=== PATIENT | male | born 1935 | race Caucasian/White ===

== ENCOUNTER 2017-10-09 10:12 | Emergency (ER) | payer MEDICARE ==
[~2017-10-09] VITALS: Ht 175.3 cm; Wt 70.5 kg
[~2017-10-09 10:12] MED LIST: ACET325 PO; MIRA33502 PO; PROT40TA PO
[2017-10-09 10:18] VITALS: BP 177/96; PULSE 79; RESP 24; TEMP 98.1; O2SAT 98
[2017-10-09 10:23] VITALS: BP 177/96; PULSE 78; RESP 20; TEMP 98.1; O2SAT 100
[2017-10-09] MEDS ORDERED: SODIUM CHLOR 0.9% 1000 ML INJ 1,000 ML IV SCH (10:29)
--- NOTE | 2017-10-09 10:29 | PD ---
HPI Chief Complaint: GI Complaint Time Seen by Provider: 10:23 Travel History International Travel<30 days: No Contact w/Intl Traveler<30days: No Traveled to known affect area: No History of Present Illness HPI PATIENT STATES HAS HISTORY OF STOMACH ULCER, AND OVER PAST 3 DAYS NAUSEA AND OCCASIONAL VOMITING WHICH IMPROVES HIS NAUSEA. PATIENT DENIES CP/BACK PAIN/ FEVER/COUGH/RUNNY NOSE PCP:DR UVALDO MARQUEZ Past Medical History Arthritis: No Asthma: No Heart Rhythm Problems: No Cardiovascular Problems: No High Cholesterol: No Chest Pain: No Congestive Heart Failure: No COPD: No Cerebrovascular Accident: No GERD: No Genitourinary: No Hiatal Hernia: No Kidney Stones: No Musculoskeletal: Yes (aches and pains generalized) Neurologic: No Reproductive: No Respiratory: No Migraines: No Renal Failure: No Seizures: No Sleep Apnea: No Ulcer: No Past Surgical History Abdominal Surgery: No Cardiac Surgery: No Ear Surgery: No Endocrine Surgery: No Eye Surgery: No Genitourinary Surgery: No Gynecologic Surgery: No Oral Surgery: No Pacemaker: No Thoracic Surgery: No Social History Alcohol Use: No Tobacco Use: No Substance Use: No Allergies-Medications (Allergen,Severity, Reaction): Coded Allergies: No Known Allergies (Verified Adverse Reaction, Unknown, 10/09/17) Reported Meds & Prescriptions Reported Meds & Active Scripts Active Reported Hydroxyzine HCl 25 Mg Tab 25 Mg PO DIRECTED PRN Pepto-Bismol Liq (Bismuth Subsalicylate) 262 Mg/15 Ml Susp 5 Ml PO DIRECTED PRN Do not exceed 8 doses (240 mL or 16 tbsp) in 24 hours. Doxazosin (Doxazosin Mesylate) 1 Mg Tab Unknown Dose PO BID Docusate Sodium 100 Mg Cap 50 Mg PO BID PRN Miralax Powder (Polyethylene Glycol 3350 Powder) 17 Gm Powd 17 Gm PO DAILY PRN Mix and dissolve one measuring cap-ful (17 grams) in water or juice. Senna-Tabs (Sennosides) 8.6 Mg Tab 8.6 Mg PO DAILY Aspirin 81 Mg Chew 81 Mg CHEW DAILY Protonix (Pantoprazole Sodium) 20 Mg Tab 20 Mg PO DAILY Review of Systems Except as stated in HPI: all other systems reviewed are Neg General / Constitutional: No: Fever Eyes: No: Visual changes HENT: No: Headaches Cardiovascular: No: Chest Pain or Discomfort Respiratory: No: Shortness of Breath Gastrointestinal: Positive: Nausea, Vomiting, Abdominal Pain Genitourinary: No: Dysuria Musculoskeletal: No: Pain Skin: No Rash Neurologic: No: Weakness Psychiatric: No: Depression Endocrine: No: Polydipsia Hematologic/Lymphatic: No: Easy Bruising Physical Exam Narrative GENERAL: SKIN: Warm and dry. HEAD: Atraumatic. Normocephalic. EYES: Pupils equal and round. No scleral icterus. No injection or drainage. ENT: No nasal bleeding or discharge. Mucous membranes pink and moist. NECK: Trachea midline. No JVD. CARDIOVASCULAR: Regular rate and rhythm. RESPIRATORY: No accessory muscle use. Clear to auscultation. Breath sounds equal bilaterally. GASTROINTESTINAL: Abdomen soft, MILD EPIG TTPERCUSSION, nondistended. MUSCULOSKELETAL: Extremities without clubbing, cyanosis, or edema. No obvious deformities. NEUROLOGICAL: Awake and alert. No obvious cranial nerve deficits. Motor grossly within normal limits. Five out of 5 muscle strength in the arms and legs. Normal speech. PSYCHIATRIC: Appropriate mood and affect; insight and judgment normal. Data Data Last Documented VS Vital Signs Date Time Temp Pulse Resp B/P (MAP) Pulse Ox O2 Delivery O2 Flow Rate FiO2 10/09/17 10:36 100 Room Air 10/09/17 10:23 98.1 78 20 Orders Orders Complete Blood Count With Diff (10/09/17 10:29) Comprehensive Metabolic Panel (10/09/17 10:29) Lipase (10/09/17 10:29) Prothrombin Time / Inr (Pt) (10/09/17 10:29) Act Partial Throm Time (Ptt) (10/09/17 10:29) Ct Abd/Pel W/O Iv Contrast (10/09/17 10:29) Iv Access Insert/Monitor (10/09/17 10:29) Ecg Monitoring (10/09/17 10:29) Oximetry (10/09/17 10:29) NPO (10/09/17 10:29) Ondansetron Inj (Zofran Inj) (10/09/17 10:30) Pantoprazole Inj (Protonix Inj) (10/09/17 10:30) Sodium Chlor 0.9% 1000 Ml Inj (Ns 1000 M (10/09/17 10:29) Sodium Chloride 0.9% Flush (Ns Flush) (10/09/17 10:30) Electrocardiogram (10/09/17 10:29) Al-Mag Hy-Si 40-40-4 Mg/Ml Liq (Mag-Al P (10/09/17 10:30) Lidocaine 2% Viscous (Xylocaine 2% Visco (10/09/17 10:30) Troponin I (10/09/17 10:29) Labs Laboratory Tests Test 10/09/17 10:35 White Blood Count 5.6 TH/MM3 Red Blood Count 4.57 MIL/MM3 Hemoglobin 14.7 GM/DL Hematocrit 41.5 % Mean Corpuscular Volume 90.7 FL Mean Corpuscular Hemoglobin 32.1 PG Mean Corpuscular Hemoglobin Concent 35.4 % Red Cell Distribution Width 14.2 % Platelet Count 269 TH/MM3 Mean Platelet Volume 8.6 FL Neutrophils (%) (Auto) 76.3 % Lymphocytes (%) (Auto) 18.5 % Monocytes (%) (Auto) 4.6 % Eosinophils (%) (Auto) 0.3 % Basophils (%) (Auto) 0.3 % Neutrophils # (Auto) 4.2 TH/MM3 Lymphocytes # (Auto) 1.0 TH/MM3 Monocytes # (Auto) 0.3 TH/MM3 Eosinophils # (Auto) 0.0 TH/MM3 Basophils # (Auto) 0.0 TH/MM3 CBC Comment DIFF FINAL Differential Comment Prothrombin Time 11.1 SEC Prothromb Time International Ratio 1.1 RATIO Activated Partial Thromboplast Time 25.8 SEC Blood Urea Nitrogen 12 MG/DL Creatinine 0.94 MG/DL Random Glucose 131 MG/DL Total Protein 7.6 GM/DL Albumin 4.0 GM/DL Calcium Level 9.1 MG/DL Alkaline Phosphatase 63 U/L Aspartate Amino Transf (AST/SGOT) 18 U/L Alanine Aminotransferase (ALT/SGPT) 15 U/L Total Bilirubin 0.7 MG/DL Sodium Level 134 MEQ/L Potassium Level 3.7 MEQ/L Chloride Level 100 MEQ/L Carbon Dioxide Level 25.6 MEQ/L Anion Gap 8 MEQ/L Estimat Glomerular Filtration Rate 76 ML/MIN Troponin I LESS THAN 0.02 NG/ML Lipase 72 U/L MDM Medical Decision Making Medical Screen Exam Complete: Yes Emergency Medical Condition: Yes Medical Record Reviewed: Yes Interpretation(s) EKG: HEAVY MOTION ARTIFACT, APPEARS TO BE SINUS IN PATTERN HOWEVER DIFFICULT TO ASSESS DUE TO PATIENT'S BASELINE TREMOR AT REST....RHYTHM STRIP REVEALS NSR AT 98 Differential Diagnosis DYSPEPSIA V PANCREATITIS V NV V NONSTEMI Narrative Course NORMAL LIVER/PANCREAS/KIDNEY FUNCTION TODAY, CT NEG FOR FREE AIR/SBO PATTERN AND ONLY NOTED CHRONIC CHANGES SUCH DIVERTICULOSIS AND CHRONIC LUMBAR FINDING Diagnosis Primary Impression: Dyspepsia Patient Instructions: Diet for Stomach Ulcers and Gastritis (ED), Gastritis (ED ), General Instructions Scripts Ondansetron Odt (Zofran Odt) 4 Mg Tab 4 MG SL Q6HR Y for Nausea/Vomiting, #12 TAB 0 Refills Prov: Elliot Humphrey MD 10/09/17 Disposition: 01 DISCHARGE HOME Condition: Stable Elliot Humphrey MD Oct 09, 2017 10:29
[2017-10-09] MEDS ORDERED: SODIUM CHLORIDE 0.9% FLUSH 10 ML FLUSH IV FLUSH PRN (10:30)
[2017-10-09] MEDS ORDERED: ALUMINUM/MAGNESIUM/SIMETH 30 ML CUP PO ONE (10:30)
[2017-10-09] MEDS ORDERED: LIDOCAINE VISCOUS 2% SOLN 15 ML UDC PO ONE (10:30)
[2017-10-09] MEDS ORDERED: ONDANSETRON HCL 4 MG/2 ML VIAL IVP ONE ×2 (10:30→13:00)
[2017-10-09] MEDS ORDERED: PANTOPRAZOLE SODIUM 40 MG VIAL IVP ONE (10:30)
[2017-10-09] MEDS ORDERED: SENN8.6T36 PO (10:32)
[2017-10-09] MEDS ORDERED: PANT20 PO (10:32)
[2017-10-09] MEDS ORDERED: DOCU100C15 PO (10:32)
[2017-10-09] MEDS ORDERED: ASPI-516 CHEW (10:32)
[2017-10-09] MEDS ORDERED: MIRA3350 PO (10:32)
[2017-10-09] MEDS ORDERED: DOXA1TAB36 PO (10:32)
[2017-10-09] MEDS ORDERED: HYDR-3133 PO (10:35)
[2017-10-09] MEDS ORDERED: PEPT262S PO (10:35)
[2017-10-09 10:36] VITALS: O2SAT 100
[2017-10-09 10:57] LABS: AUTOMATED NEUTROPHIL # 4.2 TH/MM3 (1.8-7.7); BASOPHIL % 0.3 % (0.0-2.0); EOSINOPHIL % 0.3 % (0.0-4.0); HEMATOCRIT 41.5 % (39.0-51.0); HEMOGLOBIN 14.7 GM/DL (13.0-17.0); LYMPH % 18.5 % (9.0-44.0); MEAN CELL VOLUME 90.7 FL (80.0-100.0); MEAN CORPUSCULAR HEMOGLOBIN 32.1 PG (27.0-34.0); MEAN CORPUSCULAR HGB CONC 35.4 % (32.0-36.0); MEAN PLATELET VOLUME 8.6 FL (7.0-11.0); MONO % 4.6 % (0.0-8.0); MONOCYTE # 0.3 TH/MM3 (0-0.9); NEUT % 76.3 % (16.0-70.0); PLATELET COUNT 269 TH/MM3 (150-450); RED BLOOD COUNT 4.57 MIL/MM3 (4.50-5.90); RED CELL DISTRIBUTION WIDTH 14.2 % (11.6-17.2); WHITE BLOOD COUNT 5.6 TH/MM3 (4.0-11.0)
[2017-10-09 11:06] LABS: INTERNATIONAL NORMALIZED RATIO 1.1 RATIO; PROTHROMBIN TIME - PATIENT 11.1 SEC (9.8-11.6)
[2017-10-09 11:12] LABS: AST (GOT) 18 U/L (15-37); BICARBONATE 25.6 MEQ/L (21.0-32.0); BLOOD UREA NITROGEN 12 MG/DL (7-18); CALCIUM 9.1 MG/DL (8.5-10.1); CHLORIDE 100 MEQ/L (98-107); CREATININE 0.94 MG/DL (0.60-1.30); GLOMERULAR FILTRATION RATE 76 ML/MIN (>89); GLUCOSE,RANDOM 131 MG/DL (74-106); LIPASE 72 U/L (73-393); SODIUM (NA) 134 MEQ/L (136-145)
[2017-10-09 11:13] LABS: ALT (GPT) 15 U/L (12-78)
[2017-10-09 11:17] LABS: ALKALINE PHOSPHATASE 63 U/L (45-117); TOTAL BILIRUBIN ADULT 0.7 MG/DL (0.2-1.0); TOTAL PROTEIN 7.6 GM/DL (6.4-8.2); TROPONIN I LESS THAN 0.02 NG/ML (0.02-0.05)
--- NOTE | 2017-10-09 11:38 | RADRPT ---
EXAM DATE/TIME: 10/09/2017 11:12 [facility] COMPARISON: No previous studies available for comparison. INDICATIONS : Patient complains of nausea, history of ulcer. ORAL CONTRAST: No oral contrast ingested. RADIATION DOSE: 6.59 CTDIvol (mGy) MEDICAL HISTORY : Hypertension. Ulcers. SURGICAL HISTORY : polyps removed ENCOUNTER: Initial ACUITY: 1 day PAIN SCALE: 0/10 LOCATION: abdomen TECHNIQUE: Volumetric scanning of the abdomen and pelvis was performed. Using automated exposure control and ad justment of the mA and/or kV according to patient size, radiation dose was kept as low as reasonably achievable to obtain optimal diagnostic quality images. DICOM format image data is available electro nically for review and comparison. FINDINGS: LOWER LUNGS: There is mild suspected atelectasis at the posterior lung bases. LIVER: Homogeneous density without lesion. There is no dilation of the biliary tree. No calcified gallston es. SPLEEN: Normal size without lesion. PANCREAS: Within normal limits. KIDNEYS: Normal in size and shape. There is no mass, stone, or hydronephrosis. ADRENAL GLANDS: Within normal limits. VASCULAR: There is no aortic aneurysm. Atherosclerotic calcifications are seen. BOWEL/MESENTERY: There are colonic diverticula present. Significant inflammatory change is not seen. ABDOMINAL WALL: Within normal limits. RETROPERITONEUM: There is no lymphadenopathy. BLADDER: No wall thickening or mass. REPRODUCTIVE: Prostate calcifications are present. INGUINAL: There is no lymphadenopathy or hernia. MUSCULOSKELETAL: There is a mild concave deformity of the superior aspect of L1. The age of this deformity is not know n. There is degenerative change in the lumbar spine and at the left hip. CONCLUSION: 1. Colonic diverticula. 2. Mild concave deformity of the superior aspect of L1. The age of this deformity is not known. 3. Degenerative change in lumbar spine and left hip. Lit Darling MD on October 09, 2017 at 11:31 Board Certified Radiologist. This report was verified electronically.
[2017-10-09 12:00] VITALS: BP 189/88; PULSE 56; RESP 10; O2SAT 99
[2017-10-09] MEDS ORDERED: ZOFR4TAB3 SL (12:20)
[2017-10-09] MEDS ORDERED: traMADol HCL 50 MG TAB PO ONE (13:00)
--- NOTE | 2017-10-10 17:19 | EKG ---
Date Performed: 10/09/2017 Time Performed: 10:48:56 PTAGE: 82 years EKG: ATRIAL FIBRILLATION ABNORMAL RHYTHM ECG INTERPRETATION BASED ON A DEFAULT AGE OF 40 YEARS PREVIOUS TRACING : 05/30/2013 17.34 Compared to prior tracing no significant change DOCTOR: Eron Ryan Interpretating Date/Time 10/10/2017 17:18:57
== END 2017-10-09 15:15 | disposition home or self-care (01) ==
LOC: NEPE 10:12
DX: R10.13 Epigastric pain (principal); R11.2 Nausea with vomiting, unspecified; I48.91 Unspecified atrial fibrillation; R94.31 Abnormal electrocardiogram [ECG] [EKG]; Z79.899 Other long term (current) drug therapy; Z79.82 Long term (current) use of aspirin
CPT/HCPCS: 74176; 80053; 83690; 84484; 85025; 85610; 85730; 93005; 96361; 96374; 96375; 96376; 99285; C9113; J2405; J7030

== ENCOUNTER → 2017-10-30 | Outpatient (CLI) | payer MEDICARE ==
[~2017-10-30] MED LIST changes: -ACET325 PO; +ASPI-516 CHEW; +DOCU100C15 PO; +DOXA1TAB36 PO; +HYDR-3133 PO; +MIRA3350 PO; -MIRA33502 PO; +PANT20 PO; +PEPT262S PO; -PROT40TA PO; +SENN8.6T36 PO; +ZOFR4TAB3 SL
[2017-10-30 13:29] LABS: BILIRUBIN, URINE NEG (NEG); BLOOD, URINE NEG (NEG); GLUCOSE,URINE NEG (NEG); HYALINE CAST, URINE 2 /lpf (RARE); KETONE, URINE NEG (NEG); MUCUS URINE MANY /lpf (OCC); NITRITE,URINE NEG (NEG); PH, URINE 5.5 (5.0-8.5); SQUAMOUS EPITHELIAL CELL URINE 2 /hpf (0-5); URINE COLOR YELLOW (YELLW/STRAW); URINE LEUKOCYTE ESTERASE NEG (NEG)
[2017-10-30 13:32] LABS: BASOPHIL % 0.3 % (0.0-2.0); EOSINOPHIL % 0.5 % (0.0-4.0); HEMATOCRIT 40.3 % (39.0-51.0); HEMOGLOBIN 13.9 GM/DL (13.0-17.0); LYMPH % 30.7 % (9.0-44.0); LYMPHOCYTE # 1.5 TH/MM3 (1.0-4.8); MEAN CELL VOLUME 91.1 FL (80.0-100.0); MEAN CORPUSCULAR HEMOGLOBIN 31.3 PG (27.0-34.0); MEAN CORPUSCULAR HGB CONC 34.4 % (32.0-36.0); MEAN PLATELET VOLUME 8.1 FL (7.0-11.0); MONO % 6.8 % (0.0-8.0); MONOCYTE # 0.3 TH/MM3 (0-0.9); NEUT % 61.7 % (16.0-70.0); PLATELET COUNT 292 TH/MM3 (150-450); RED BLOOD COUNT 4.43 MIL/MM3 (4.50-5.90); RED CELL DISTRIBUTION WIDTH 14.4 % (11.6-17.2); WHITE BLOOD COUNT 4.9 TH/MM3 (4.0-11.0)
[2017-10-30 14:01] LABS: ALBUMIN 3.9 GM/DL (3.4-5.0); AST (GOT) 12 U/L (15-37); BLOOD UREA NITROGEN 14 MG/DL (7-18); CALCIUM 9.8 MG/DL (8.5-10.1); CHLORIDE 99 MEQ/L (98-107); CREATININE 0.93 MG/DL (0.60-1.30); GLOMERULAR FILTRATION RATE 77 ML/MIN (>89); GLUCOSE,FASTING 124 MG/DL (74-99); SODIUM (NA) 135 MEQ/L (136-145)
[2017-10-30 14:02] LABS: ALT (GPT) 20 U/L (12-78)
[2017-10-30 14:12] LABS: ALKALINE PHOSPHATASE 58 U/L (45-117); THYROXINE (T4) 10.7 MCG/DL (4.5-12.1); TOTAL BILIRUBIN ADULT 0.6 MG/DL (0.2-1.0); TOTAL PROTEIN 7.3 GM/DL (6.4-8.2)
== END ==
LOC: PLAB 11:43
PROVIDERS: ATTEND Family Medicine
DX: I10 Essential (primary) hypertension (principal); N40.0 Benign prostatic hyperplasia without lower urinary tract symptoms; R94.6 Abnormal results of thyroid function studies; R11.2 Nausea with vomiting, unspecified
CPT/HCPCS: 36415; 80053; 81001; 84153; 84436; 84443; 85025

== ENCOUNTER 2018-02-03 15:15 | Emergency (ER) | payer MEDICARE, MEDICAID ==
[~2018-02-03 15:15] MED LIST changes: -ASPI-516 CHEW; +ASPI-516 PO
[2018-02-03 15:21] VITALS: BP 178/81; PULSE 81; RESP 19; TEMP 99.5; O2SAT 98
[2018-02-03] MEDS ORDERED: SODIUM CHLOR 0.9% 1000 ML INJ 1,000 ML IV SCH (15:41)
--- NOTE | 2018-02-03 15:41 | PD ---
HPI Chief Complaint: Abdominal Pain Time Seen by Provider: 15:31 Travel History International Travel<30 days: No Contact w/Intl Traveler<30days: No Traveled to known affect area: No History of Present Illness HPI 83-year-old male arrives to the ER by private vehicle. He has few complaints. He reports abdominal pain is somewhat chronic in nature. It is located in the lower pelvis distribution. He reports to codeines or use the day prior and were helpful. Typically he takes just one for the chronic pain. Subsequent constipation resolved with [id number] laxatives. He believes it might be related to gastric ulcer. Patient also describes chest tightness. He has had no fever. He denies vomiting. PFSH Past Medical History Arthritis: No Asthma: No Heart Rhythm Problems: No Cardiovascular Problems: Yes High Cholesterol: No Chest Pain: No Congestive Heart Failure: No COPD: No Cerebrovascular Accident: No Diminished Hearing: No Gastrointestinal Disorders: Yes GERD: No Genitourinary: No Hiatal Hernia: No Hypertension: Yes Kidney Stones: No Musculoskeletal: Yes Neurologic: No Reproductive: No Respiratory: No Migraines: No Renal Failure: No Seizures: No Sleep Apnea: No Ulcer: Yes (?) Past Surgical History Abdominal Surgery: No Cardiac Surgery: No Ear Surgery: No Endocrine Surgery: No Eye Surgery: No Genitourinary Surgery: No Gynecologic Surgery: No Oral Surgery: No Pacemaker: No Thoracic Surgery: No Social History Alcohol Use: No Tobacco Use: No Substance Use: No Allergies-Medications (Allergen,Severity, Reaction): Coded Allergies: No Known Allergies (Verified Adverse Reaction, Unknown, 02/03/18) Reported Meds & Prescriptions Reported Meds & Active Scripts Active Reported Zantac (Ranitidine HCl) 150 Mg Tab 150 Mg PO BID Tylenol-Codeine #3 (Acetaminophen-Codeine) 300-30 mg Tab 1 Tab PO Q6H PRN Doxazosin (Doxazosin Mesylate) 4 Mg Tab 4 Mg PO HS Pepto-Bismol Liq (Bismuth Subsalicylate) 262 Mg/15 Ml Susp 5 Ml PO DIRECTED PRN Do not exceed 8 doses (240 mL or 16 tbsp) in 24 hours. Docusate Sodium 100 Mg Cap 100 Mg PO BID PRN Senna-Tabs (Sennosides) 8.6 Mg Tab 8.6 Mg PO DAILY Aspirin 81 Mg Chew 81 Mg PO DAILY Protonix (Pantoprazole Sodium) 20 Mg Tab 20 Mg PO DAILY Review of Systems Except as stated in HPI: all other systems reviewed are Neg General / Constitutional: No: Fever Physical Exam Narrative GENERAL: 83-year-old male pleasant well-nourished well-developed no acute distress Vital Signs Date Time Temp Pulse Resp B/P (MAP) Pulse Ox O2 Delivery O2 Flow Rate FiO2 02/03/18 15:21 99.5 81 19 178/81 (113) 98 SKIN: Warm and dry. HEAD: Atraumatic. Normocephalic. EYES: Pupils equal and round. No scleral icterus. No injection or drainage. ENT: No nasal bleeding or discharge. Mucous membranes pink and moist. NECK: Trachea midline. No JVD. CARDIOVASCULAR: Regular rate and rhythm. RESPIRATORY: No accessory muscle use. Clear to auscultation. Breath sounds equal bilaterally. GASTROINTESTINAL: Soft. Nonspecific mild tenderness in lower abdomen. MUSCULOSKELETAL: Extremities without clubbing, cyanosis, or edema. No obvious deformities. NEUROLOGICAL: Awake and alert. No obvious cranial nerve deficits. Motor grossly within normal limits. Five out of 5 muscle strength in the arms and legs. Normal speech. PSYCHIATRIC: Appropriate mood and affect; insight and judgment normal. Data Data Last Documented VS Vital Signs Date Time Temp Pulse Resp B/P (MAP) Pulse Ox O2 Delivery O2 Flow Rate FiO2 02/03/18 15:21 99.5 81 19 178/81 (113) 98 Orders Orders Complete Blood Count With Diff (02/03/18 15:41) Comprehensive Metabolic Panel (02/03/18 15:41) Lipase (02/03/18 15:41) Lactic Acid (02/03/18 15:41) Urinalysis - C+S If Indicated (02/03/18 15:41) Ct Abd/Pel W Iv Contrast(Rout) (02/03/18 15:41) Iv Access Insert/Monitor (02/03/18 15:41) Ecg Monitoring (02/03/18 15:41) Oximetry (02/03/18 15:41) Sodium Chlor 0.9% 1000 Ml Inj (Ns 1000 M (02/03/18 15:41) Sodium Chloride 0.9% Flush (Ns Flush) (02/03/18 15:45) Electrocardiogram (02/03/18 15:41) Chest, Single Ap (02/03/18 15:41) Al-Mag Hy-Si 40-40-4 Mg/Ml Liq (Mag-Al P (02/03/18 15:45) Lidocaine 2% Viscous (Xylocaine 2% Visco (02/03/18 15:45) Troponin I (02/03/18 15:41) Iohexol 350 Inj (Omnipaque 350 Inj) (02/03/18 17:00) Labs Laboratory Tests Test 02/03/18 16:05 02/03/18 17:44 White Blood Count 7.3 TH/MM3 Red Blood Count 4.51 MIL/MM3 Hemoglobin 13.9 GM/DL Hematocrit 40.4 % Mean Corpuscular Volume 89.6 FL Mean Corpuscular Hemoglobin 30.9 PG Mean Corpuscular Hemoglobin Concent 34.5 % Red Cell Distribution Width 13.9 % Platelet Count 297 TH/MM3 Mean Platelet Volume 8.0 FL Neutrophils (%) (Auto) 70.4 % Lymphocytes (%) (Auto) 19.2 % Monocytes (%) (Auto) 8.5 % Eosinophils (%) (Auto) 1.5 % Basophils (%) (Auto) 0.4 % Neutrophils # (Auto) 5.1 TH/MM3 Lymphocytes # (Auto) 1.4 TH/MM3 Monocytes # (Auto) 0.6 TH/MM3 Eosinophils # (Auto) 0.1 TH/MM3 Basophils # (Auto) 0.0 TH/MM3 CBC Comment DIFF FINAL Differential Comment Blood Urea Nitrogen 22 MG/DL Creatinine 1.02 MG/DL Random Glucose 94 MG/DL Total Protein 7.3 GM/DL Albumin 3.7 GM/DL Calcium Level 8.9 MG/DL Alkaline Phosphatase 57 U/L Aspartate Amino Transf (AST/SGOT) 13 U/L Alanine Aminotransferase (ALT/SGPT) 17 U/L Total Bilirubin 0.8 MG/DL Sodium Level 138 MEQ/L Potassium Level 4.0 MEQ/L Chloride Level 103 MEQ/L Carbon Dioxide Level 24.3 MEQ/L Anion Gap 11 MEQ/L Estimat Glomerular Filtration Rate 69 ML/MIN Lactic Acid Level 1.0 mmol/L Troponin I LESS THAN 0.02 NG/ML Lipase 114 U/L MDM Medical Decision Making Medical Screen Exam Complete: Yes Emergency Medical Condition: Yes Medical Record Reviewed: Yes Differential Diagnosis Constipation, Gastritis, Acute Cholecystitis, Biliary Colic, Pancreatitis, HUDSON , Hepatitis, Bowel Obstruction, Cystitis, Mesenteric Ischemia, AAA, Appendicitis , Renal Stone/Hydronephrosis, GERD, perforated viscous Narrative Course CBC & BMP Diagram 02/03/18 16:05 Total Protein 7.3, Albumin 3.7, Calcium Level 8.9, Alkaline Phosphatase 57, Aspartate Amino Transf (AST/SGOT) 13 L, Alanine Aminotransferase (ALT/SGPT) 17, Total Bilirubin 0.8 Tn < 0.02 Lactic acid 1.0 Atrial fibrillation with a rate of 68 seen on EKG (afib seen on ekg from 4 months ago) CXR: Possible R lung consolidation CT ab/pel: possible mild colitis with possible L lung consolidation Patient appears quite well. Blood work is essentially unremarkable and his vital signs are normal. Patient will go home with oral antibiotics. The first dose to be given here. We have Levaquin with Flagyl, the former conferring better pulmonary coverage. Diagnosis Primary Impression: Diverticulitis Additional Impression: PNA (pneumonia) Qualified Codes: J18.9 - Pneumonia, unspecified organism Referrals: Primary Care Physician call for appointment Med/Other Pt SpecificInfo: Prescription(s) given Scripts Metronidazole (Flagyl) 500 Mg Tab 500 MG PO TID for Infection for 10 Days, TAB 0 Refills Prov: Dante Marin MD 02/03/18 Levofloxacin (Levaquin) 500 Mg Tablet 500 MG PO DAILY for Infection for 7 Days, #7 TAB 0 Refills Prov: Dante Marin MD 02/03/18 Disposition: 01 DISCHARGE HOME Condition: Stable Dante Marin MD Feb 03, 2018 15:41
[2018-02-03] MEDS ORDERED: ALUMINUM/MAGNESIUM/SIMETH 30 ML CUP PO ONE (15:45)
[2018-02-03] MEDS ORDERED: LIDOCAINE VISCOUS 2% SOLN 15 ML UDC PO ONE (15:45)
[2018-02-03] MEDS ORDERED: SODIUM CHLORIDE 0.9% FLUSH 10 ML FLUSH IV FLUSH PRN (15:45)
--- NOTE | 2018-02-03 16:35 | RADRPT ---
EXAM DATE/TIME: 02/03/2018 15:57 [facility] COMPARISON: No previous studies available for comparison. INDICATIONS : Patient complains of chest pain. MEDICAL HISTORY : None. SURGICAL HISTORY : None. ENCOUNTER: Initial ACUITY: 1 day PAIN SCORE: 4/10 LOCATION: chest FINDINGS: A single view of the chest demonstrates the lungs to be symmetrically aerated without evidence of mas s, infiltrate or effusion. The cardiomediastinal contours are unremarkable. Osseous structures are intact. CONCLUSION: No acute disease. Lit Darling MD on February 03, 2018 at 16:32 Board Certified Radiologist. This report was verified electronically.
[2018-02-03 16:37] LABS: AUTOMATED NEUTROPHIL # 5.1 TH/MM3 (1.8-7.7); BASOPHIL % 0.4 % (0.0-2.0); EOSINOPHIL # 0.1 TH/MM3 (0-0.4); EOSINOPHIL % 1.5 % (0.0-4.0); HEMATOCRIT 40.4 % (39.0-51.0); HEMOGLOBIN 13.9 GM/DL (13.0-17.0); LYMPH % 19.2 % (9.0-44.0); LYMPHOCYTE # 1.4 TH/MM3 (1.0-4.8); MEAN CELL VOLUME 89.6 FL (80.0-100.0); MEAN CORPUSCULAR HEMOGLOBIN 30.9 PG (27.0-34.0); MEAN CORPUSCULAR HGB CONC 34.5 % (32.0-36.0); MONO % 8.5 % (0.0-8.0); MONOCYTE # 0.6 TH/MM3 (0-0.9); NEUT % 70.4 % (16.0-70.0); PLATELET COUNT 297 TH/MM3 (150-450); RED BLOOD COUNT 4.51 MIL/MM3 (4.50-5.90); RED CELL DISTRIBUTION WIDTH 13.9 % (11.6-17.2); WHITE BLOOD COUNT 7.3 TH/MM3 (4.0-11.0)
[2018-02-03 16:42] LABS: ALBUMIN 3.7 GM/DL (3.4-5.0); ALT (GPT) 17 U/L (12-78); AST (GOT) 13 U/L (15-37); BICARBONATE 24.3 MEQ/L (21.0-32.0); BLOOD UREA NITROGEN 22 MG/DL (7-18); CALCIUM 8.9 MG/DL (8.5-10.1); CHLORIDE 103 MEQ/L (98-107); CREATININE 1.02 MG/DL (0.60-1.30); GLOMERULAR FILTRATION RATE 69 ML/MIN (>89); GLUCOSE,RANDOM 94 MG/DL (74-106); SODIUM (NA) 138 MEQ/L (136-145)
[2018-02-03 16:46] LABS: ALKALINE PHOSPHATASE 57 U/L (45-117); TOTAL BILIRUBIN ADULT 0.8 MG/DL (0.2-1.0); TOTAL PROTEIN 7.3 GM/DL (6.4-8.2); TROPONIN I LESS THAN 0.02 NG/ML (0.02-0.05)
[2018-02-03] MEDS ORDERED: TYLETAB34 PO (16:59)
[2018-02-03] MEDS ORDERED: DOXA1TAB34 PO (16:59)
[2018-02-03] MEDS ORDERED: IOHEXOL 350 MG/ML 10 ML VIAL (for RAD DIAG) IVCONTRAST ONE (17:00)
[2018-02-03] MEDS ORDERED: ZANT150T2 PO (17:00)
--- NOTE | 2018-02-03 17:22 | RADRPT ---
EXAM DATE/TIME: 02/03/2018 16:58 [facility] COMPARISON: CT ABDOMEN & PELVIS W/O CONTRAST, October 09, 2017, 11:12. INDICATIONS : Diffuse abdomen pain for four days. IV CONTRAST: 90 cc Omnipaque 350 (iohexol) IV ORAL CONTRAST: No oral contrast ingested. RADIATION DOSE: 5.69 CTDIvol (mGy) MEDICAL HISTORY : Hypertension. SURGICAL HISTORY : None. ENCOUNTER: Initial ACUITY: 4 - 6 days PAIN SCALE: 10/10 LOCATION: Bilateral abdomen TECHNIQUE: Volumetric scanning of the abdomen and pelvis was performed. Using automated exposure control and ad justment of the mA and/or kV according to patient size, radiation dose was kept as low as reasonably achievable to obtain optimal diagnostic quality images. DICOM format image data is available electro nically for review and comparison. FINDINGS: LOWER LUNGS: There is focal density seen in the posterior right lung base. This likely represents a focal area of consolidation or atelectasis. LIVER: Homogeneous density without lesion. There is no dilation of the biliary tree. No calcified gallston es. SPLEEN: Normal size without lesion. PANCREAS: Within normal limits. KIDNEYS: Normal in size and shape. There is no mass, stone or hydronephrosis. ADRENAL GLANDS: Within normal limits. VASCULAR: There is no aortic aneurysm. Atherosclerotic calcifications are present. BOWEL/MESENTERY: There are multiple colonic diverticula seen. This includes several sigmoid diverticula that appear pr ominent. Mild diverticulitis may be present. ABDOMINAL WALL: Within normal limits. RETROPERITONEUM: There is no lymphadenopathy. BLADDER: No wall thickening or mass. REPRODUCTIVE: Within normal limits. INGUINAL: There is no lymphadenopathy or hernia. MUSCULOSKELETAL: There is degenerative change in the lumbar spine. There is very prominent degenerative change at the left hip joint. CONCLUSION: 1. Multiple diverticula including several prominent diverticula in the sigmoid colon raising possibil ity of mild diverticulitis. Significant surrounding inflammatory change is not seen. 2. Suspected focal atelectasis or consolidation at the right lung base. 3. Chronic degenerative changes the left hip joint. Lit Darling MD on February 03, 2018 at 17:12 Board Certified Radiologist. This report was verified electronically.
[2018-02-03] MEDS ORDERED: METR-1 PO (18:07)
[2018-02-03] MEDS ORDERED: LEVA500T33 PO (18:07)
[2018-02-03 18:14] LABS: BILIRUBIN, URINE NEG (NEG); BLOOD, URINE NEG (NEG); GLUCOSE,URINE NEG (NEG); KETONE, URINE NEG (NEG); MUCUS URINE FEW /lpf (OCC); NITRITE,URINE NEG (NEG); PH, URINE 5.5 (5.0-8.5); SQUAMOUS EPITHELIAL CELL URINE 1 /hpf (0-5); URINE COLOR YELLOW (YELLW/STRAW); URINE LEUKOCYTE ESTERASE NEG (NEG)
[2018-02-03] MEDS ORDERED: metroNIDAZOLE 500 MG TAB PO ONE (18:15)
[2018-02-03] MEDS ORDERED: LEVOFLOXACIN 750 MG TAB PO ONE (18:15)
--- NOTE | 2018-02-04 00:16 | EKG ---
Date Performed: 02/03/2018 Time Performed: 15:51:39 PTAGE: 83 years EKG: PROBABLE ATRIAL FIBRILLATION NONSPECIFIC T-WAVE ABNORMALITY ABNORMAL RHYTHM ECG Since the PREVIOUS TRACING , no significant change noted DOCTOR: Chavez Marin Interpretating Date/Time 02/04/2018 00:16:08
== END 2018-02-03 19:48 | disposition home or self-care (01) ==
LOC: NEPE 15:15
DX: K57.32 Diverticulitis of large intestine without perforation or abscess without bleeding (principal); J18.9 Pneumonia, unspecified organism; R07.89 Other chest pain
CPT/HCPCS: 71045; 74177; 80053; 81001; 83605; 83690; 84484; 85025; 93005; 96360; 99285; J7030; Q9967

== ENCOUNTER 2018-02-08 16:06 | Emergency (ER) | payer MEDICARE, MEDICAID ==
[~2018-02-08] VITALS: Ht 175.3 cm; Wt 70.0 kg
[~2018-02-08 16:06] MED LIST changes: +DOXA1TAB34 PO; -DOXA1TAB36 PO; -HYDR-3133 PO; +LEVA500T33 PO; +METR-1 PO; -MIRA3350 PO; +TYLETAB34 PO; +ZANT150T2 PO; -ZOFR4TAB3 SL
[2018-02-08 16:14] VITALS: BP 151/81; PULSE 62; RESP 16; O2SAT 99
[2018-02-08] MEDS ORDERED: SODIUM CHLOR 0.9% 1000 ML INJ 1,000 ML IV ONE (16:30)
[2018-02-08 16:45] LABS: AUTOMATED NEUTROPHIL # 3.9 TH/MM3 (1.8-7.7); BASOPHIL % 0.4 % (0.0-2.0); EOSINOPHIL # 0.2 TH/MM3 (0-0.4); HEMATOCRIT 40.7 % (39.0-51.0); HEMOGLOBIN 14.2 GM/DL (13.0-17.0); LYMPH % 21.9 % (9.0-44.0); LYMPHOCYTE # 1.3 TH/MM3 (1.0-4.8); MEAN CELL VOLUME 90.7 FL (80.0-100.0); MEAN CORPUSCULAR HEMOGLOBIN 31.6 PG (27.0-34.0); MEAN CORPUSCULAR HGB CONC 34.9 % (32.0-36.0); MEAN PLATELET VOLUME 8.2 FL (7.0-11.0); MONOCYTE # 0.5 TH/MM3 (0-0.9); NEUT % 64.7 % (16.0-70.0); PLATELET COUNT 322 TH/MM3 (150-450); RED BLOOD COUNT 4.49 MIL/MM3 (4.50-5.90); RED CELL DISTRIBUTION WIDTH 14.3 % (11.6-17.2)
[2018-02-08 16:53] LABS: INTERNATIONAL NORMALIZED RATIO 1.1 RATIO; PROTHROMBIN TIME - PATIENT 11.4 SEC (9.8-11.6)
--- NOTE | 2018-02-08 17:00 | RADRPT ---
EXAM DATE/TIME: 02/08/2018 16:44 [facility] COMPARISON: CHEST SINGLE AP, February 03, 2018, 15:57. INDICATIONS : Chest pain and fever. MEDICAL HISTORY : Hypertension. SURGICAL HISTORY : None. ENCOUNTER: Sequela ACUITY: 1 day PAIN SCORE: 5/10 LOCATION: Right chest FINDINGS: A single view of the chest demonstrates the lungs to be symmetrically aerated without evidence of mas s, infiltrate or effusion. The cardiomediastinal contours are unremarkable. Osseous structures are intact. CONCLUSION: The lungs are clear. No infiltrate seen. Roberto Hassan MD on February 08, 2018 at 16:58 Board Certified Radiologist. This report was verified electronically.
[2018-02-08 17:29] LABS: ALBUMIN 3.5 GM/DL (3.4-5.0); ALT (GPT) 27 U/L (12-78); AST (GOT) 21 U/L (15-37); BICARBONATE 24.3 MEQ/L (21.0-32.0); BLOOD UREA NITROGEN 22 MG/DL (7-18); CALCIUM 8.7 MG/DL (8.5-10.1); CHLORIDE 102 MEQ/L (98-107); CREATININE 1.08 MG/DL (0.60-1.30); GLOMERULAR FILTRATION RATE 65 ML/MIN (>89); GLUCOSE,RANDOM 103 MG/DL (74-106); MAGNESIUM 2.1 MG/DL (1.5-2.5); SODIUM (NA) 134 MEQ/L (136-145)
[2018-02-08 17:34] LABS: BILIRUBIN, URINE NEG (NEG); BLOOD, URINE NEG (NEG); GLUCOSE,URINE NEG (NEG); KETONE, URINE NEG (NEG); MUCUS URINE FEW /lpf (OCC); NITRITE,URINE NEG (NEG); PH, URINE 6.5 (5.0-8.5); SQUAMOUS EPITHELIAL CELL URINE 2 /hpf (0-5); URINE COLOR YELLOW (YELLW/STRAW); URINE LEUKOCYTE ESTERASE TRACE (NEG)
[2018-02-08 17:38] LABS: ALKALINE PHOSPHATASE 54 U/L (45-117); TOTAL BILIRUBIN ADULT 0.4 MG/DL (0.2-1.0); TOTAL PROTEIN 6.9 GM/DL (6.4-8.2); TROPONIN I LESS THAN 0.02 NG/ML (0.02-0.05)
--- NOTE | 2018-02-08 18:06 | HHI.FF ---
Face to Face Verification Diagnosis: (1) Weakness (2) Neuropathy Home Health Aide Order: To Assist In: Bathing and personal care, disc inspector and meal prep Business Architect Order: To Evaluate: Living conditions/environment, Support services Order: To Provide: Long range planning, Community services I have seen patient Harshil Garcia on 02/08/18. My clinical findings support the need for the requested home health care services because: Ltd mobility - disease progression Deconditioned w/ increased weakness Need for psychosocial assistance I certify that my clinical findings support that this patient is homebound because: Unsteady gait/balance Need for psychosocial assistance Raven Yepez MD February 08, 2018 18:06
--- NOTE | 2018-02-08 18:08 | PD ---
Data Data Last Documented VS Vital Signs Date Time Temp Pulse Resp B/P (MAP) Pulse Ox O2 Delivery O2 Flow Rate FiO2 02/08/18 16:14 62 16 151/81 (104) 99 Orders Orders Electrocardiogram (02/08/18 16:28) Complete Blood Count With Diff (02/08/18 16:28) Comprehensive Metabolic Panel (02/08/18 16:28) Ckmb (Isoenzyme) Profile (02/08/18 16:28) Troponin I (02/08/18:) Prothrombin Time / Inr (Pt) (02/08/18 16:28) Act Partial Throm Time (Ptt) (02/08/18 16:28) Blood Culture (02/08/18 16:) Lipase (02/08/18 16:) Urinalysis - C+S If Indicated (02/08/18 16:28) Magnesium (Mg) (02/08/18 16:28) Thyroid Stimulating Hormone (02/08/18 16:28) Chest, Single Ap (02/08/18 16:28) Iv Access Insert/Monitor (02/08/18 16:28) Ecg Monitoring (02/08/18 16:28) Oximetry (02/08/18 16:28) Sodium Chlor 0.9% 1000 Ml Inj (Ns 1000 M (02/08/18 16:30) CKMB (02/08/18 16:30) CKMB% (02/08/18 16:30) Labs Laboratory Tests Test 02/08/18 16:30 02/08/18 17:00 White Blood Count 6.0 TH/MM3 Red Blood Count 4.49 MIL/MM3 Hemoglobin 14.2 GM/DL Hematocrit 40.7 % Mean Corpuscular Volume 90.7 FL Mean Corpuscular Hemoglobin 31.6 PG Mean Corpuscular Hemoglobin Concent 34.9 % Red Cell Distribution Width 14.3 % Platelet Count 322 TH/MM3 Mean Platelet Volume 8.2 FL Neutrophils (%) (Auto) 64.7 % Lymphocytes (%) (Auto) 21.9 % Monocytes (%) (Auto) 9.0 % Eosinophils (%) (Auto) 4.0 % Basophils (%) (Auto) 0.4 % Neutrophils # (Auto) 3.9 TH/MM3 Lymphocytes # (Auto) 1.3 TH/MM3 Monocytes # (Auto) 0.5 TH/MM3 Eosinophils # (Auto) 0.2 TH/MM3 Basophils # (Auto) 0.0 TH/MM3 CBC Comment DIFF FINAL Differential Comment Prothrombin Time 11.4 SEC Prothromb Time International Ratio 1.1 RATIO Activated Partial Thromboplast Time 26.0 SEC Blood Urea Nitrogen 22 MG/DL Creatinine 1.08 MG/DL Random Glucose 103 MG/DL Total Protein 6.9 GM/DL Albumin 3.5 GM/DL Calcium Level 8.7 MG/DL Magnesium Level 2.1 MG/DL Alkaline Phosphatase 54 U/L Aspartate Amino Transf (AST/SGOT) 21 U/L Alanine Aminotransferase (ALT/SGPT) 27 U/L Total Bilirubin 0.4 MG/DL Sodium Level 134 MEQ/L Potassium Level 4.2 MEQ/L Chloride Level 102 MEQ/L Carbon Dioxide Level 24.3 MEQ/L Anion Gap 8 MEQ/L Estimat Glomerular Filtration Rate 65 ML/MIN Total Creatine Kinase 127 U/L Creatine Kinase MB 3.1 NG/ML Troponin I LESS THAN 0.02 NG/ML Lipase 77 U/L Thyroid Stimulating Hormone 3rd Gen 5.770 uIU/ML Urine Color YELLOW Urine Turbidity CLEAR Urine pH 6.5 Urine Specific [place] 1.019 Urine Protein TRACE mg/dL Urine Glucose (UA) NEG mg/dL Urine Ketones NEG mg/dL Urine Occult Blood NEG Urine Nitrite NEG Urine Bilirubin NEG Urine Urobilinogen LESS THAN 2.0 MG/DL Urine Leukocyte Esterase TRACE Urine RBC LESS THAN 1 /hpf Urine WBC 5 /hpf Urine Squamous Epithelial Cells 2 /hpf Urine Mucus FEW /lpf Microscopic Urinalysis Comment CULT NOT INDICATED MDM Supervised Visit with RACHAEL: Yes Narrative Course The history, exam, and medical decision-making in the associated midlevel provider note were completed with my assistance. I reviewed and agree with the findings presented. I attest that I had a [id number] encounter with the patient on the same day, and personally performed and documented my assessment and findings in the medical record. *My assessment and Findings: This is an 83-year-old male who presents to the emergency department reporting multiple nonspecific complaints including weakness and loose stools. When talking to the patient I get the impression he is here because he has limited support at home. He asked me targeted questions as to whether I could find someone that could help him grocery shop and cook for him. He was interested in nursing homes and assisted living facilities. He says he is having trouble driving because he has neuropathy in his feet. He has a daughter who lives in [place] but he does not want me to call her because he says she works too hard and is living beyond her means as it is. The patient has reassuring blood work. He had a CT scan several days ago demonstrating diverticuli but no obvious diverticulitis. I think the patient presents purely for social reasons. I placed a home health social services analyst evaluation which I think will benefit the patient the most. He will be discharged home. Raven Yepez MD February 08, 2018 18:08
--- NOTE | 2018-02-08 18:32 | PD ---
HPI Chief Complaint: General Weakness Time Seen by Provider: 16:13 Travel History International Travel<30 days: No Contact w/Intl Traveler<30days: No Traveled to known affect area: No History of Present Illness HPI 83-year-old male that presents to the ED for evaluation of generalized weakness. Patient came here by ambulance for evaluation of this. Per patient has had diarrhea and weakness for the past 3 days. Patient was seen here about 4 days ago and diagnosed with diverticulitis and started antibiotics. Per patient is been feeling weak and called the ambulance because he was concerned about the diarrhea and feeling weak. Per patient he lives alone. He denies any chest pain or shortness of breath. No pain of any kind. Per patient his abdominal pain is better. He does have multiple other complaints including wound to his right thumb that he states that he lanced himself and he has been not healing well. Also another complaint was his neck pain that he has had chronically for some time as well as numbness to his legs has been ongoing for years. When I asked him what his main concern today he states that is his weakness and diarrhea. Per patient her diarrhea is liquidy. Denies any urinary or bowel movement issues other than the diarrhea. No fevers chills or sweats. No other medical issues. States compliance with the medications. No pain. PFSH Past Medical History Arthritis: No Asthma: No Heart Rhythm Problems: No Cardiovascular Problems: Yes High Cholesterol: No Chest Pain: No Congestive Heart Failure: No COPD: No Cerebrovascular Accident: No Diminished Hearing: No Gastrointestinal Disorders: Yes GERD: No Genitourinary: No Hiatal Hernia: No Hypertension: Yes Kidney Stones: No Musculoskeletal: Yes Neurologic: No Reproductive: No Respiratory: No Migraines: No Renal Failure: No Seizures: No Sleep Apnea: No Ulcer: Yes (?) Past Surgical History Abdominal Surgery: No Cardiac Surgery: No Ear Surgery: No Endocrine Surgery: No Eye Surgery: No Genitourinary Surgery: No Gynecologic Surgery: No Oral Surgery: No Pacemaker: No Thoracic Surgery: No Social History Alcohol Use: No Tobacco Use: No Substance Use: No Allergies-Medications (Allergen,Severity, Reaction): Coded Allergies: No Known Allergies (Verified Adverse Reaction, Unknown, 02/08/18) Reported Meds & Prescriptions Reported Meds & Active Scripts Active Flagyl (Metronidazole) 500 Mg Tab 500 Mg PO TID 10 Days Levaquin (Levofloxacin) 500 Mg Tablet 500 Mg PO DAILY 7 Days Reported Zantac (Ranitidine HCl) 150 Mg Tab 150 Mg PO BID Tylenol-Codeine #3 (Acetaminophen-Codeine) 300-30 mg Tab 1 Tab PO Q6H PRN Doxazosin (Doxazosin Mesylate) 4 Mg Tab 4 Mg PO HS Pepto-Bismol Liq (Bismuth Subsalicylate) 262 Mg/15 Ml Susp 5 Ml PO DIRECTED PRN Do not exceed 8 doses (240 mL or 16 tbsp) in 24 hours. Docusate Sodium 100 Mg Cap 100 Mg PO BID PRN Senna-Tabs (Sennosides) 8.6 Mg Tab 8.6 Mg PO DAILY Aspirin 81 Mg Chew 81 Mg PO DAILY Protonix (Pantoprazole Sodium) 20 Mg Tab 20 Mg PO DAILY Review of Systems Except as stated in HPI: all other systems reviewed are Neg Physical Exam Narrative GENERAL: SKIN: Warm and dry. Patient has what appears to be a healing wound to his right thumb just around the nail cutticle. HEAD: Atraumatic. Normocephalic. EYES: Pupils equal and round. No scleral icterus. No injection or drainage. ENT: No nasal bleeding or discharge. Mucous membranes pink and moist. Tongue is midline. No uvula deviation. NECK: Trachea midline. No JVD. CARDIOVASCULAR: Regular rate and rhythm. No murmurs, S3, S4. RESPIRATORY: No accessory muscle use. Clear to auscultation. Breath sounds equal bilaterally. GASTROINTESTINAL: Abdomen soft, non-tender, nondistended. Hepatic and splenic margins not palpable. MUSCULOSKELETAL: Extremities without clubbing, cyanosis, or edema. No obvious deformities. Full range of motion of the upper and lower extremities bilaterally. 2+ pulses bilaterally. NEUROLOGICAL: Awake and alert. No obvious cranial nerve deficits. Motor grossly within normal limits. Five out of 5 muscle strength in the arms and legs. Normal speech. PSYCHIATRIC: Appropriate mood and affect; insight and judgment normal. Data Data Last Documented VS Vital Signs Date Time Temp Pulse Resp B/P (MAP) Pulse Ox O2 Delivery O2 Flow Rate FiO2 02/08/18 16:14 62 16 151/81 (104) 99 Orders Orders Electrocardiogram (02/08/18 16:28) Complete Blood Count With Diff (02/08/18 16:28) Comprehensive Metabolic Panel (02/08/18 16:28) Ckmb (Isoenzyme) Profile (02/08/18 16:) Troponin I (02/08/18:) Prothrombin Time / Inr (Pt) (02/08/18) Act Partial Throm Time (Ptt) (02/08/18:) Blood Culture (02/08/18:) Lipase (02/08/18:) Urinalysis - C+S If Indicated (02/08/18) Magnesium (Mg) (02/08/18:) Thyroid Stimulating Hormone (02/08/18) Chest, Single Ap (02/08/18) Iv Access Insert/Monitor (02/08/18) Ecg Monitoring (02/08/18) Oximetry (02/08/18) Sodium Chlor 0.9% 1000 Ml Inj (Ns 1000 M (02/08/18 16:30) CKMB (02/08/18 16:30) CKMB% (02/08/18:) Ed Discharge Order (02/08/18 18:12) Labs Laboratory Tests Test 02/08/18 16:30 02/08/18 17:00 White Blood Count 6.0 TH/MM3 Red Blood Count 4.49 MIL/MM3 Hemoglobin 14.2 GM/DL Hematocrit 40.7 % Mean Corpuscular Volume 90.7 FL Mean Corpuscular Hemoglobin 31.6 PG Mean Corpuscular Hemoglobin Concent 34.9 % Red Cell Distribution Width 14.3 % Platelet Count 322 TH/MM3 Mean Platelet Volume 8.2 FL Neutrophils (%) (Auto) 64.7 % Lymphocytes (%) (Auto) 21.9 % Monocytes (%) (Auto) 9.0 % Eosinophils (%) (Auto) 4.0 % Basophils (%) (Auto) 0.4 % Neutrophils # (Auto) 3.9 TH/MM3 Lymphocytes # (Auto) 1.3 TH/MM3 Monocytes # (Auto) 0.5 TH/MM3 Eosinophils # (Auto) 0.2 TH/MM3 Basophils # (Auto) 0.0 TH/MM3 CBC Comment DIFF FINAL Differential Comment Prothrombin Time 11.4 SEC Prothromb Time International Ratio 1.1 RATIO Activated Partial Thromboplast Time 26.0 SEC Blood Urea Nitrogen 22 MG/DL Creatinine 1.08 MG/DL Random Glucose 103 MG/DL Total Protein 6.9 GM/DL Albumin 3.5 GM/DL Calcium Level 8.7 MG/DL Magnesium Level 2.1 MG/DL Alkaline Phosphatase 54 U/L Aspartate Amino Transf (AST/SGOT) 21 U/L Alanine Aminotransferase (ALT/SGPT) 27 U/L Total Bilirubin 0.4 MG/DL Sodium Level 134 MEQ/L Potassium Level 4.2 MEQ/L Chloride Level 102 MEQ/L Carbon Dioxide Level 24.3 MEQ/L Anion Gap 8 MEQ/L Estimat Glomerular Filtration Rate 65 ML/MIN Total Creatine Kinase 127 U/L Creatine Kinase MB 3.1 NG/ML Troponin I LESS THAN 0.02 NG/ML Lipase 77 U/L Thyroid Stimulating Hormone 3rd Gen 5.770 uIU/ML Urine Color YELLOW Urine Turbidity CLEAR Urine pH 6.5 Urine Specific [place] 1.019 Urine Protein TRACE mg/dL Urine Glucose (UA) NEG mg/dL Urine Ketones NEG mg/dL Urine Occult Blood NEG Urine Nitrite NEG Urine Bilirubin NEG Urine Urobilinogen LESS THAN 2.0 MG/DL Urine Leukocyte Esterase TRACE Urine RBC LESS THAN 1 /hpf Urine WBC 5 /hpf Urine Squamous Epithelial Cells 2 /hpf Urine Mucus FEW /lpf Microscopic Urinalysis Comment CULT NOT INDICATED MDM Medical Decision Making Medical Screen Exam Complete: Yes Emergency Medical Condition: Yes Medical Record Reviewed: Yes Interpretation(s) CBC & BMP Diagram 02/08/18 16:30 Total Protein 6.9, Albumin 3.5, Calcium Level 8.7, Magnesium Level 2.1, Alkaline Phosphatase 54, Aspartate Amino Transf (AST/SGOT) 21, Alanine Aminotransferase (ALT/SGPT) 27, Total Bilirubin 0.4 Last Impressions Chest X-Ray 02/08/18 [id number] Signed Impressions: Service Date/Time: February 16:44 - CONCLUSION: The lungs are clear. No infiltrate seen. Roberto Hassan MD coags WNL UA WNL Differential Diagnosis Weakness versus normal exam versus diarrhea versus diverticulitis versus sepsis Narrative Course 83-year-old male that presents to the ED for evaluation of weakness and diarrhea. Patient was properly examined and was found to have signs and symptoms consistent with appears to be weakness and diarrhea. Labs and imaging order. Labs and imaging were essentially unremarkable. Unclear to the patient' s symptoms. Patient already been treated for diverticulitis but she has no abdominal pain. My attending doctor, Dr Yepez, had evaluated the patient with me and agrees with plan. Patient can be discharged. Case management was involved and home health was ordered for the patient. Patient agrees with discharge. Continue medications. Follow-up with PCP. See ED if worsening symptoms. Diagnosis Primary Impression: Weakness Patient Instructions: General Instructions Departure Forms: Tests/Procedures Additional Instructions: Take medication as prescribed to you. Follow-up with PCP. See ED if worsening symptoms. Med/Other Pt SpecificInfo: No Change to Meds Disposition: 01 DISCHARGE HOME Condition: Stable Richard Almazan February 08, 2018 18:32
--- NOTE | 2018-02-09 17:27 | HHI.FF ---
Face to Face Verification Diagnosis: (1) Weakness (2) Neuropathy Physical Therapy Order: Evaluate and Treat Home Health Nursing Order: Medical education Nursing assessment with vital signs Home Health Aide Order: To Assist In: Bathing and personal care, glass frame fitter and meal prep Coating Machine Operator Helper Order: To Evaluate: Living conditions/environment, Support services Order: To Provide: Long range planning, Community services I have seen patient Harshil Garcia on 02/09/18. My clinical findings support the need for the requested home health care services because: Deconditioned w/ increased weakness Limited ability to care for self Need for psychosocial assistance I certify that my clinical findings support that this patient is homebound because: Need for psychosocial assistance Raven Yepez MD February 09, 2018 17:27
--- NOTE | 2018-02-09 22:06 | EKG ---
Date Performed: 02/08/2018 Time Performed: 16:33:02 PTAGE: 83 years EKG: Sinus rhythm with premature atrial contractions and blocked Premature atrial contractions. Can not rule out an at rial tachycardia. When compared to previous tracing, patient is now in sinus Contractions. ABNORMAL R HYTHM ECG PREVIOUS TRACING : 02/03/2018 15.51 DOCTOR: Eron Ryan Interpretating Date/Time 02/09/2018 17:00:30
== END 2018-02-08 18:50 | disposition home or self-care (01) ==
LOC: NEPC 16:06
DX: R53.1 Weakness (principal); R19.7 Diarrhea, unspecified; R94.31 Abnormal electrocardiogram [ECG] [EKG]
CPT/HCPCS: 71045; 80053; 81001; 82550; 82552; 83690; 83735; 84443; 84484; 85025; 85610; 85730; 87040; 93005; 96360; 99285; J7030

== ENCOUNTER 2018-02-14 11:06 | Inpatient (IN) | payer MEDICARE, MEDICAID ==
[~2018-02-14] VITALS: Ht 175.3 cm; Wt 70.0 kg
[2018-02-14 11:10] VITALS: TEMP 98.2
[2018-02-14 11:13] VITALS: BP 151/95; PULSE 47; RESP 18; O2SAT 98
[2018-02-14 11:41] LABS: AUTOMATED NEUTROPHIL # 3.2 TH/MM3 (1.8-7.7); BASOPHIL % 0.5 % (0.0-2.0); EOSINOPHIL # 0.1 TH/MM3 (0-0.4); EOSINOPHIL % 1.7 % (0.0-4.0); HEMATOCRIT 44.9 % (39.0-51.0); HEMOGLOBIN 15.4 GM/DL (13.0-17.0); LYMPH % 29.3 % (9.0-44.0); LYMPHOCYTE # 1.6 TH/MM3 (1.0-4.8); MEAN CELL VOLUME 89.6 FL (80.0-100.0); MEAN CORPUSCULAR HEMOGLOBIN 30.8 PG (27.0-34.0); MEAN CORPUSCULAR HGB CONC 34.4 % (32.0-36.0); MEAN PLATELET VOLUME 7.9 FL (7.0-11.0); MONOCYTE # 0.6 TH/MM3 (0-0.9); NEUT % 57.5 % (16.0-70.0); PLATELET COUNT 368 TH/MM3 (150-450); RED BLOOD COUNT 5.02 MIL/MM3 (4.50-5.90); RED CELL DISTRIBUTION WIDTH 14.4 % (11.6-17.2); WHITE BLOOD COUNT 5.6 TH/MM3 (4.0-11.0)
--- NOTE | 2018-02-14 11:59 | PD ---
HPI Chief Complaint: Pain: Acute or Chronic Time Seen by Provider: 11:10 Travel History International Travel<30 days: No Contact w/Intl Traveler<30days: No History of Present Illness HPI 83-year-old male that presents to the ED for evaluation of back pain and numbness to his legs. Is hard to pinpoint what the patient came here for both family was present at the side and they did mention to the patient is here mainly for placement. Family have noted a complete decline on patient's physical and mental capabilities in the past month. More physical than mental. Patient has had some numbness to his lower legs that has been ongoing for some time. The patient is been worsening the past month and because of this he has not been driving. He states that the back pain is from an injury that he had when he was younger and has had some pains on and off since. He usually uses a walker to get about. Per patient the discomfort has not worsened but the numbness has decreased his ability to function. He also feels more weak. Per family he is also no eating or drinking as much. Patient was actually seen here twice this month. He was diagnosed with diverticulitis and states that he finished antibiotics and has been doing better on that regard. No diarrhea. Per patient now he has dysuria and polyuria from what he describes as a prostate issue. She states that the dysuria is 2 out of 10. He feels pressure on his bladder. He denies any numbness, tingling, weakness. No allergies to medication. Has not seen anybody for this as per patient he cannot drive to see his doctor. Patient has had home health go to his house and 1 of the social workers recommended that the patient be placed secondary to how much decline he has had. Apparently patient does live by himself. They recommended that he comes here. Patient comes here by ambulance for evaluation of this. PFSH Past Medical History Arthritis: No Asthma: No Heart Rhythm Problems: No Cardiovascular Problems: Yes High Cholesterol: No Chest Pain: No Congestive Heart Failure: No COPD: No Cerebrovascular Accident: No Diminished Hearing: No Gastrointestinal Disorders: Yes GERD: No Genitourinary: No Hiatal Hernia: No Hypertension: Yes Kidney Stones: No Musculoskeletal: Yes Neurologic: No Reproductive: No Respiratory: No Migraines: No Renal Failure: No Seizures: No Sleep Apnea: No Ulcer: Yes (?) Past Surgical History Abdominal Surgery: No Cardiac Surgery: No Ear Surgery: No Endocrine Surgery: No Eye Surgery: No Genitourinary Surgery: No Gynecologic Surgery: No Oral Surgery: No Pacemaker: No Thoracic Surgery: No Social History Alcohol Use: No Tobacco Use: No Substance Use: No Allergies-Medications (Allergen,Severity, Reaction): Coded Allergies: No Known Allergies (Verified Adverse Reaction, Unknown, 02/14/18) Reported Meds & Prescriptions Reported Meds & Active Scripts Active Reported Miralax Powder (Polyethylene Glycol 3350 Powder) 17 Gm Powd 17 Gm PO DAILY Mix and dissolve one measuring cap-ful (17 grams) in water or juice. Tylenol-Codeine #4 (Acetaminophen-Codeine) 300-60 mg Tab 1 Tab PO Q6HR PRN Aspirin 81 Mg Chew 81 Mg PO DAILY Protonix (Pantoprazole Sodium) 20 Mg Tab 20 Mg PO DAILY Review of Systems Except as stated in HPI: all other systems reviewed are Neg Physical Exam Narrative GENERAL: SKIN: Warm and dry. HEAD: Atraumatic. Normocephalic. EYES: Pupils equal and round 4 mm reactive to light and accommodation.. No scleral icterus. No injection or drainage. ENT: No nasal bleeding or discharge. Mucous membranes pink and moist. Tongue is midline. No uvula deviation. NECK: Trachea midline. No JVD. CARDIOVASCULAR: Regular rate and rhythm. No murmurs, S3, S4. RESPIRATORY: No accessory muscle use. Clear to auscultation. Breath sounds equal bilaterally. GASTROINTESTINAL: Abdomen soft, non-tender, nondistended. Hepatic and splenic margins not palpable. MUSCULOSKELETAL: Extremities without clubbing, cyanosis, or edema. No obvious deformities. Full range of motion of the upper and lower extremities bilaterally. 2+ pulses bilaterally. Patient does have some weakness in the lower legs compared to the upper extremities. No lumbar, thoracic, cervical spine tenderness to palpation. NEUROLOGICAL: Awake and alert. No obvious cranial nerve deficits. Motor grossly within normal limits. Five out of 5 muscle strength in the arms and legs. Normal speech. PSYCHIATRIC: Appropriate mood and affect; insight and judgment normal. Data Data Last Documented VS Vital Signs Date Time Temp Pulse Resp B/P (MAP) Pulse Ox O2 Delivery O2 Flow Rate FiO2 02/14/18 11:13 51 18 02/14/18 11:13 151/95 (113) 98 Room Air 02/14/18 11:10 98.2 Orders Orders Electrocardiogram (02/14/18 11:17) Complete Blood Count With Diff (02/14/18 11:17) Comprehensive Metabolic Panel (02/14/18 11:17) Urinalysis - C+S If Indicated (02/14/18 11:17) Magnesium (Mg) (02/14/18 11:17) Thyroid Stimulating Hormone (02/14/18 11:17) Iv Access Insert/Monitor (02/14/18 11:17) Ecg Monitoring (02/14/18 11:17) Ct Lumb Spine W/O Contrast (02/14/18 ) (Hub Use Only)Inp Phy Cons/Ref (02/14/18 ) Admit Order (Ed Use Only) (02/14/18 13:44) Labs Laboratory Tests Test 02/14/18 11:30 02/14/18 12:15 White Blood Count 5.6 TH/MM3 Red Blood Count 5.02 MIL/MM3 Hemoglobin 15.4 GM/DL Hematocrit 44.9 % Mean Corpuscular Volume 89.6 FL Mean Corpuscular Hemoglobin 30.8 PG Mean Corpuscular Hemoglobin Concent 34.4 % Red Cell Distribution Width 14.4 % Platelet Count 368 TH/MM3 Mean Platelet Volume 7.9 FL Neutrophils (%) (Auto) 57.5 % Lymphocytes (%) (Auto) 29.3 % Monocytes (%) (Auto) 11.0 % Eosinophils (%) (Auto) 1.7 % Basophils (%) (Auto) 0.5 % Neutrophils # (Auto) 3.2 TH/MM3 Lymphocytes # (Auto) 1.6 TH/MM3 Monocytes # (Auto) 0.6 TH/MM3 Eosinophils # (Auto) 0.1 TH/MM3 Basophils # (Auto) 0.0 TH/MM3 CBC Comment DIFF FINAL Differential Comment Blood Urea Nitrogen 16 MG/DL Creatinine 0.90 MG/DL Random Glucose 104 MG/DL Total Protein 6.9 GM/DL Albumin 3.8 GM/DL Calcium Level 9.0 MG/DL Magnesium Level 2.1 MG/DL Alkaline Phosphatase 48 U/L Aspartate Amino Transf (AST/SGOT) 20 U/L Alanine Aminotransferase (ALT/SGPT) 29 U/L Total Bilirubin 0.6 MG/DL Sodium Level 133 MEQ/L Potassium Level 4.0 MEQ/L Chloride Level 100 MEQ/L Carbon Dioxide Level 21.1 MEQ/L Anion Gap 12 MEQ/L Estimat Glomerular Filtration Rate 80 ML/MIN Thyroid Stimulating Hormone 3rd Gen 5.430 uIU/ML Urine Color YELLOW Urine Turbidity CLEAR Urine pH 7.5 Urine Specific [place] 1.010 Urine Protein NEG mg/dL Urine Glucose (UA) NEG mg/dL Urine Ketones NEG mg/dL Urine Occult Blood NEG Urine Nitrite NEG Urine Bilirubin NEG Urine Urobilinogen LESS THAN 2.0 MG/DL Urine Leukocyte Esterase NEG Urine RBC LESS THAN 1 /hpf Urine WBC 1 /hpf Urine Squamous Epithelial Cells <1 /hpf Urine Amorphous Sediment OCC Microscopic Urinalysis Comment CULT NOT INDICATED MDM Medical Decision Making Medical Screen Exam Complete: Yes Emergency Medical Condition: Yes Medical Record Reviewed: Yes Interpretation(s) CBC & BMP Diagram 02/14/18 11:30 Total Protein 6.9, Albumin 3.8, Calcium Level 9.0, Magnesium Level 2.1, Alkaline Phosphatase 48, Aspartate Amino Transf (AST/SGOT) 20, Alanine Aminotransferase (ALT/SGPT) 29, Total Bilirubin 0.6 [address] Impressions Lumbar Spine CT 02/14/18 0000 Signed Impressions: Service Date/Time: Monday, February 14, 2018 11:50 - CONCLUSION: 1. Focal severe spinal canal stenosis at L4-5. 2. Focal mild to moderate spinal canal stenosis at L3-4. 3. Mild spinal canal stenosis at L2-3 and L5-S1 4. Old appearing moderate compression fracture injury along the superior endplate of L1-S1. 5. Primary degenerative changes throughout the lumbar spine with bilateral facet arthritis at multiple levels. Jeramie Friedman MD EKG shows sinus rhythm with no sign of acute ischemia or arrythmia read by me and attending. UA negative Differential Diagnosis Weakness versus neuropathy versus failure to thrive versus UTI versus urinary retention versus fever Narrative Course 83-year-old male that presents to the ED for evaluation of weakness back pain and probable urinary tract infection. Patient was properly examined and was found to have signs and symptoms consistent appears to be weakness and possible failure to try. I am familiar with the patient as I saw him a week ago. At that time she had multiple complaints but nothing appearing serious. She still looks good but he does appear to have weakness and family is at bedside this time and they are concerned for his safety at home has patient is not able to take care of himself anymore. They do have home health both the home health even believes the patient may need to be placed. Labs and imaging order. Labs and imaging show what appears to be severe stenosis. Physical exam is reassuring. Patient is main symptom appears to be numbness to the plantar aspect of the feet. Otherwise neurologically patient appears to be intact but had gait instability. Case management got involved and recommend admission secondary to the spinal stenosis and need for placement. Case discussed with Residents who agreed to admission. Diagnosis Primary Impression: Spinal stenosis Qualified Codes: M48.061 - Spinal stenosis, lumbar region without neurogenic claudication Additional Impression: Weakness Admitting Information Admitting Physician Requests: Admit Richard Almazan February 14, 2018 11:59
[2018-02-14 12:04] LABS: ALBUMIN 3.8 GM/DL (3.4-5.0); AST (GOT) 20 U/L (15-37); BICARBONATE 21.1 MEQ/L (21.0-32.0); BLOOD UREA NITROGEN 16 MG/DL (7-18); CHLORIDE 100 MEQ/L (98-107); GLOMERULAR FILTRATION RATE 80 ML/MIN (>89); GLUCOSE,RANDOM 104 MG/DL (74-106); MAGNESIUM 2.1 MG/DL (1.5-2.5); SODIUM (NA) 133 MEQ/L (136-145)
[2018-02-14 12:11] LABS: ALKALINE PHOSPHATASE 48 U/L (45-117); ALT (GPT) 29 U/L (12-78); TOTAL BILIRUBIN ADULT 0.6 MG/DL (0.2-1.0); TOTAL PROTEIN 6.9 GM/DL (6.4-8.2)
--- NOTE | 2018-02-14 12:28 | EKG ---
Date Performed: 02/14/2018 Time Performed: 11:15:37 PTAGE: 83 years EKG: Sinus rhythm first degree av block SEPTAL MYOCARDIAL INFARCTION ABNORMAL ECG PREVIOUS TRACING : 02/08/2018 16.33 DOCTOR: Micah Mahmood Interpretating Date/Time 02/14/2018 12:27:46
--- NOTE | 2018-02-14 12:34 | RADRPT ---
EXAM DATE/TIME: 02/14/2018 11:50 [facility] COMPARISON: No previous studies available for comparison. INDICATIONS : Lower back pain radiating down legs,numbness both feet. RADIATION DOSE: 26.14 CTDIvol (mGy) MEDICAL HISTORY : Hypertension. Cardiovascular disease SURGICAL HISTORY : None. ENCOUNTER: Initial ACUITY: 1 day PAIN SCALE: 4/10 LOCATION: Lumbar TECHNIQUE: Volumetric scanning of the lumbar spine was performed. Multiplanar reconstructions in the sagittal, coronal and oblique axial planes were performed. Using automated exposure control and adjustment of the mA and/or kV according to patient size, radiation dose was kept as low as reasonably achievable t o obtain optimal diagnostic quality images. DICOM format image data is available electronically for review and comparison. FINDINGS: VERTEBRAE: There is a moderate old appearing compression fracture injury along the superior endplate of L1. Ther e are primary bony degenerative changes of the lumbar spine. No significant spondylolisthesis. ALIGNMENT: No evidence of subluxation. T12-L1: The thecal sac has a normal diameter. No evidence of disc bulge or protrusion. The neural foramina are patent bilaterally. L1-L2: The thecal sac has a normal diameter. No evidence of disc bulge or protrusion. The neural foramina are patent bilaterally. Facet arthritis. L2-L3: There is diffuse broad-based bulging. The neural foramina appear patent.. There is hypertrophy of lig amentum flavum and facet arthritis. Mild spinal canal stenosis. L3-L4: Moderate diffuse broad-based bulging with some narrowing of the neural foramina bilaterally. Hypertro phied ligamentum flavum. Bilateral facet arthritis. Focal mild to moderate spinal canal stenosis. L4-L5: Diffuse moderate to prominent broad-based bulging with narrowing of the neural foramina bilaterally. Bilateral facet arthritis. Hypertrophy of ligamentum flavum. Focal severe spinal canal stenosis. L5-S1: Diffuse broad-based and right lateral bulging with some narrowing of the right neural foramina. Mild narrowing of the left neural foramina. Bilateral facet arthritis. Mild spinal canal stenosis. CONCLUSION: 1. Focal severe spinal canal stenosis at L4-5. 2. Focal mild to moderate spinal canal stenosis at L3-4. 3. Mild spinal canal stenosis at L2-3 and L5-S1 4. Old appearing moderate compression fracture injury along the superior endplate of L1-S1. 5. Primary degenerative changes throughout the lumbar spine with bilateral facet arthritis at multipl e levels. Jeramie Friedman MD on February 14, 2018 at 12:27 Board Certified Radiologist. This report was verified electronically.
[2018-02-14 12:40] LABS: AMORPHOUS SEDIMENT, URINE OCC; BILIRUBIN, URINE NEG (NEG); BLOOD, URINE NEG (NEG); GLUCOSE,URINE NEG (NEG); KETONE, URINE NEG (NEG); NITRITE,URINE NEG (NEG); PH, URINE 7.5 (5.0-8.5); SQUAMOUS EPITHELIAL CELL URINE <1 /hpf (0-5); URINE COLOR YELLOW (YELLW/STRAW); URINE LEUKOCYTE ESTERASE NEG (NEG)
[2018-02-14] MEDS ORDERED: TYLETAB36 PO (13:10)
[2018-02-14] MEDS ORDERED: MIRA3350 PO (13:10)
--- NOTE | 2018-02-14 13:53 | HHI.HP ---
[facility] Service Family Medicine Primary Care Physician Lien Padilla MD Admission Diagnosis severe spinal stenosis, inability to ambulate, failure to thrive Diagnoses: International Travel<30 Days: No Contact w/Intl Traveler<30days: No History of Present Illness 83 yo male with remote history of alcoholism sober for 40 years and PUD in 2011 presenting with 1 month of poor appetite, short term memory loss, and exacerbation of chronic low back pain from known arthritis. No incontinence or saddle anesthesia. He does note numbness/paresthesia in his feet for the last month which has caused him to avoid driving because "he can't feel the pedals." He feels his appetite is decreased and he feels somewhat queasy when eating larger meals but denies abdominal pain. No blood in stool. Over the last year he also notes forgetfulness and absentmindedness, worse in the last month. He feels as though he often forgets what he is doing or why. No focal weakness, slurred speech, or trouble swallowing, though he prefers to eat a pureed diet and feels globally weak. The main reason he came to the hospital is that today a senior case manager was seeing him as part of home health care he had and recommended he be placed due to the physical and cognitive decline he has reported. He could not drive so came to hospital by ambulance. (Tee Hanson MD R2) Review of Systems Constitutional: COMPLAINS OF: Weight loss (chronic), DENIES: Fever, Chills Endocrine: DENIES: Heat/cold intolerance Eyes: DENIES: Blurred vision, Eye pain Ears, nose, mouth, throat: DENIES: Throat pain, Running Nose Respiratory: DENIES: Cough, Wheezing, Shortness of breath Cardiovascular: DENIES: Chest pain, Dyspnea on Exertion, Lower Extremity Edema Gastrointestinal: COMPLAINS OF: Nausea, Anorexia, DENIES: Abdominal pain, Black stools, Bloody stools, Constipation, Diarrhea, Vomiting, Difficulty Swallowing Genitourinary: COMPLAINS OF: Dysuria, DENIES: Urinary frequency, Urinary incontinence Musculoskeletal: COMPLAINS OF: Back pain Integumentary: DENIES: Rash Hematologic/lymphatic: DENIES: Bruising Neurologic: COMPLAINS OF: Paresthesias, DENIES: Headache, Localized weakness, Speech Problems Psychiatric: COMPLAINS OF: Confusion, DENIES: Anxiety, Mood changes, Depression (Tee Hanson MD R2) Past Family Social History Past Medical History BPH HTN controlled without medication Osteoarthritis PUD in 2012 Past Surgical History Tonsillectomy as a child Reported Medications Miralax Powder (Polyethylene Glycol 3350 Powder) 17 Gm Powd 17 Gm PO DAILY PRN Mix and dissolve one measuring cap-ful (17 grams) in water or juice. Tylenol-Codeine #4 (Acetaminophen-Codeine) 300-60 mg Tab 1 Tab PO Q6HR PRN Aspirin 81 Mg Chew 81 Mg PO DAILY (Tee Hanson MD R2) Allergies: Coded Allergies: No Known Allergies (Verified Adverse Reaction, Unknown, 02/14/18) Active Ordered Medications Current Medications Medications (Trade) Dose Ordered Sig/Che Route Start Time Stop Time Status Last Admin (NS Flush) 2 ml UNSCH PRN IV FLUSH 02/14/18 15:15 (NS Flush) 2 ml BID IV FLUSH 02/14/18 21:00 (Tylenol) 650 mg Q4H PRN PO 02/14/18 15:15 (Lovenox Inj) 40 mg Q24H SQ 02/14/18 18:00 (Narcan Inj) 0.4 mg UNSCH PRN IV PUSH 02/14/18 15:15 (Luzmaria-Colace) 1 tab BID PO 02/14/18 21:00 (Milk Of Magnesia Liq) 30 ml Q12H PRN PO 02/14/18 15:15 (Senokot) 17.2 mg Q12H PRN PO 02/14/18 15:15 (Dulcolax Supp) 10 mg DAILY PRN RECTAL 02/14/18 15:15 (Lactulose Liq) 30 ml DAILY PRN PO 02/14/18 15:15 Family History Father had hemorrhoids Social History tob - smoked 1/2 PPD from age 7 - 43 Alc - former alcoholic, sober since age 43 drugs - none Lives in apartment by himself, has had home health coming by to see him (Tee Hanson MD R2) Physical Exam Vital Signs Vital Signs Date Time Temp Pulse Resp B/P (MAP) Pulse Ox O2 Delivery O2 Flow Rate FiO2 02/14/18 11:13 51 18 02/14/18 11:13 47 18 151/95 (113) 98 Room Air 02/14/18 11:10 98.2 Physical Exam GENERAL: WDWN but thin adult white male SKIN: No rashes, ecchymoses or lesions. Cool and dry. No jaundice. HEAD: NC/AT EYES: PERRL. EOMI. No conjunctival injection or drainage. ENT: MMM, OP without erythema, tonsillar swelling, or exudate. NECK: Supple, no lymphadenopathy CARDIOVASCULAR: NRRR. Normal S1/S2. No MRG CHEST: Gynecomastia. CTAB. No crackles or wheezes. GASTROINTESTINAL: Telangiectasias on upper abdomen. Abdomen soft, non-distended , non-tender. No hepato-splenomegaly or palpable masses. MUSCULOSKELETAL: Extremities without clubbing, cyanosis, or edema. NEUROLOGICAL: Awake and alert. Oriented x3. Cranial nerves II through XII grossly intact. Moves all extremities without difficulty. Strength 5/5 for biceps/triceps and hip flexors bilaterally. Normal speech. Laboratory Laboratory Tests Test 02/14/18 11:30 02/14/18 12:15 White Blood Count 5.6 Red Blood Count 5.02 Hemoglobin 15.4 Hematocrit 44.9 Mean Corpuscular Volume 89.6 Mean Corpuscular Hemoglobin 30.8 Mean Corpuscular Hemoglobin Concent 34.4 Red Cell Distribution Width 14.4 Platelet Count 368 Mean Platelet Volume 7.9 Neutrophils (%) (Auto) 57.5 Lymphocytes (%) (Auto) 29.3 Monocytes (%) (Auto) 11.0 Eosinophils (%) (Auto) 1.7 Basophils (%) (Auto) 0.5 Neutrophils # (Auto) 3.2 Lymphocytes # (Auto) 1.6 Monocytes # (Auto) 0.6 Eosinophils # (Auto) 0.1 Basophils # (Auto) 0.0 CBC Comment DIFF FINAL Differential Comment Blood Urea Nitrogen 16 Creatinine 0.90 Random Glucose 104 Total Protein 6.9 Albumin 3.8 Calcium Level 9.0 Magnesium Level 2.1 Alkaline Phosphatase 48 Aspartate Amino Transf (AST/SGOT) 20 Alanine Aminotransferase (ALT/SGPT) 29 Total Bilirubin 0.6 Sodium Level 133 Potassium Level 4.0 Chloride Level 100 Carbon Dioxide Level 21.1 Anion Gap 12 Estimat Glomerular Filtration Rate 80 Thyroid Stimulating Hormone 3rd Gen 5.430 Urine Color YELLOW Urine Turbidity CLEAR Urine pH 7.5 Urine Specific [place] 1.010 Urine Protein NEG Urine Glucose (UA) NEG Urine Ketones NEG Urine Occult Blood NEG Urine Nitrite NEG Urine Bilirubin NEG Urine Urobilinogen LESS THAN 2.0 Urine Leukocyte Esterase NEG Urine RBC LESS THAN 1 Urine WBC 1 Urine Squamous Epithelial Cells <1 Urine Amorphous Sediment OCC Microscopic Urinalysis Comment CULT NOT INDICATED (Tee Hanson MD R2) Result Diagram: 02/14/18 1130 02/14/18 1130 Imaging Last Impressions Lumbar Spine CT 02/14/18 0000 Signed Impressions: Service Date/Time: Wednesday, February 14, 2018 11:50 - CONCLUSION: 1. Focal severe spinal canal stenosis at L4-5. 2. Focal mild to moderate spinal canal stenosis at L3-4. 3. Mild spinal canal stenosis at L2-3 and L5-S1 4. Old appearing moderate compression fracture injury along the superior endplate of L1-S1. 5. Primary degenerative changes throughout the lumbar spine with bilateral facet arthritis at multiple levels. Jeramie Friedman MD (Tee Hanson MD R2) Eric VTE Risk Assessment [place]app[place]ilip VTE Risk Assessment: Mod/High Risk (score >= 2) (Tee Hanson MD R2) Assessment and Plan Assessment and Plan 83 year old male with history of BPH and HTN both currently unmedicated and arthritis presenting with: (Tee Hanson MD R2) Attending Attestation THIS CASE WAS DISCUSSED WITH THE RESIDENT PHYSICIANS. I HAVE REVIEWED THE RECORD AND AGREE WITH THE ABOVE NOTE AND PLAN OF CARE WAS DISCUSSED. I HAVE AUTHORIZED THE ORDER FOR ADMISSION TO AN IN-PATIENT STATUS. (Tatyana Rodriguez MD) Problem List: (1) Weakness ICD Codes: R53.1 - Weakness Plan: Acute on chronic. Associated with weight loss. Likely nutritional. History of alcoholism raises question of possible cirrhosis or liver cancer, though weight loss is only symptom suggesting cancer. History of BPH with hesitancy, does not take medication. CT lumbar spine with significant spinal stenosis No ascites on exam; if cirrhosis present it is well compensated Neuro exam benign - Check liver ultrasound, AFP - Check PSA; if severely elevated will refer to urology for possible biopsy ( patient says he has urologist) - NIHSS x1 (on admission) - PT/OT eval and treat - ST for swallow eval (patient only eats pureed diet, dysphagia?) (2) Short-term memory loss ICD Codes: R41.3 - Other amnesia Plan: Suspected to be chronic and age-related. Neurological exam benign. - ST for cognitive eval - NIHSS x1 as above (3) Hyponatremia ICD Codes: E87.1 - Hypo-osmolality and hyponatremia Plan: Most likely chronic due to poor PO intake - Diet regular ad woody (pureed per patient preference) - Supplement with ensure - Trend BMP (4) Neuropathy ICD Codes: G62.9 - Polyneuropathy, unspecified Status: Chronic Plan: Likely secondary to spinal stenosis. No evidence of cord compromise. - See plan above - Consider trial of gabapentin if severe (5) Spinal stenosis ICD Codes: M48.00 - Spinal stenosis, site unspecified Status: Chronic Plan: CT with spinal stenosis, severe, lumbar No evidence of cord compromise (6) FEN/PPX Plan: Fluids: PO only Elecs: Monitor and replete as needed Nutrition: See above DVT: Lovenox 40 mg SQ daily Pain: tylenol prn CODE STATUS: DNR Dispo: CM consulted for placement, may qualify for rehab depending on PT/OT but initial impression is that likely will only qualify for home health, will need assistance for arranging possible GERMAINE depending on patient preference / insurance. (Tee Hanson MD R2) Physician Certification 2 Midnight Certification Type: Admission for Inpatient Services Order for Inpatient Services The services are ordered in accordance with Medicare regulations or non- Medicare payer requirements, as applicable. In the case of services not specified as inpatient-only, they are appropriately provided as inpatient services in accordance with the 2-midnight benchmark. Estimated LOS (days): 2 days is the estimated time the patient will need to remain in the hospital, assuming treatment plan goals are met and no additional complications. Post-Hospital Plan: Not yet determined (Tee Hanson MD R2) 2 Midnight Certification Type: Admission for Inpatient Services Post-Hospital Plan: Not yet determined (Tatyana Rodriguez MD) Problem Qualifiers (1) Spinal stenosis: Qualified Codes: M48.061 - Spinal stenosis, lumbar region without neurogenic claudication Tee Hanson MD R2 February 14, 2018 13:53 Tatyana Rodriguez MD February 15, 2018 11:57
[2018-02-14] MEDS ORDERED: LACTULOSE SYRUP 20 GM/30 ML CUP PO PRN (15:15)
[2018-02-14] MEDS ORDERED: SODIUM CHLORIDE 0.9% FLUSH 10 ML FLUSH IV FLUSH PRN (15:15)
[2018-02-14] MEDS ORDERED: NALOXONE HCL 0.4 MG/ML AMP IV PUSH PRN (15:15)
[2018-02-14] MEDS ORDERED: BISACODYL 10 MG SUPP RECTAL PRN (15:15)
[2018-02-14 16:33] VITALS: BP 155/82; PULSE 63; RESP 20; O2SAT 100
[2018-02-14] MEDS: ENOXAPARIN SODIUM 40 MG/0.4 ML SYRINGE SQ SCH (18:35)
[2018-02-14 19:26] VITALS: BP 150/82; PULSE 54; RESP 18; O2SAT 98
[2018-02-14 20:00] VITALS: BP 165/75; PULSE 54; RESP 17; TEMP 97.7; O2SAT 97
[2018-02-14] MEDS: DOCUSATE SODIUM 50 MG/SENNA 8.6 MG TAB PO SCH (21:10)
[2018-02-14] MEDS: SODIUM CHLORIDE 0.9% FLUSH 10 ML FLUSH IV FLUSH SCH (21:10)
[2018-02-14] MEDS: ACETAMINOPHEN 325 MG TAB PO PRN (21:11)
--- NOTE | 2018-02-14 23:31 | RADRPT ---
EXAM DATE/TIME: 02/14/2018 22:38 [facility] COMPARISON: CT ABDOMEN & PELVIS W CONTRAST, February 03, 2018, 16:58. [facility], [place] ABDOMEN COMPLETE, August 09, 2011 INDICATIONS : Cirrhosis. MEDICAL HISTORY : Hypertension. Ulcer. Nausea. Dysuria. SURGICAL HISTORY : Vasectomy. ENCOUNTER: Initial ACUITY: 1 day PAIN SCORE: 0/10 LOCATION: Right upper quadrant MEASUREMENTS: LIVER: 15.3 cm length COMMON DUCT: 8 mm RIGHT KIDNEY: 8.5 x 4.9 x 3.8 cm SPLEEN: 8.8 cm length FINDINGS: LIVER: Normal echotexture without focal lesion or ductal dilatation. COMMON DUCT: No intraluminal mass or stone visualized. GALLBLADDER: Contains no stones, demonstrates no wall thickening or pericholecystic fluid. PANCREAS: The visualized portions are within normal limits. RIGHT KIDNEY: Generally small. Mildly echogenic. No hydronephrosis, stone or perceptible mass. SPLEEN: No focal lesion. CONCLUSION: 1. No acute abnormality demonstrated. 2. Chronic parenchymal changes of the right kidney. Lit Blanco MD on February 14, 2018 at 23:28 Board Certified Radiologist. This report was verified electronically.
[2018-02-15] VITALS (7 sets, daily range): BP systolic 157–184; BP diastolic 74–86; PULSE 49–62; RESP 16–18; TEMP 97.2–98; O2SAT 95–99
[2018-02-15] MEDS: ACETAMINOPHEN 325 MG TAB PO PRN ×2 (04:41→08:43)
[2018-02-15 07:12] LABS: BICARBONATE 27.4 MEQ/L (21.0-32.0); CALCIUM 8.6 MG/DL (8.5-10.1); CREATININE 1.02 MG/DL (0.60-1.30); MAGNESIUM 2.3 MG/DL (1.5-2.5); PHOSPHORUS 3.8 MG/DL (2.5-4.9)
[2018-02-15] MEDS: DOCUSATE SODIUM 50 MG/SENNA 8.6 MG TAB PO SCH ×2 (08:43→21:42)
[2018-02-15] MEDS: SODIUM CHLORIDE 0.9% FLUSH 10 ML FLUSH IV FLUSH SCH ×2 (08:48→21:42)
[2018-02-15] MEDS: SODIUM CHLOR 0.9% 1000 ML INJ 1,000 ML IV SCH ×2 (11:00→21:37)
[2018-02-15] MEDS ORDERED: KETOROLAC TROMETHAMINE 30 MG/ML (IVP) VIAL IV PUSH ONE (12:45)
--- NOTE | 2018-02-15 13:29 | HHI.FPPN ---
Addendum to progress note ADDENDUM Reason for addendum: Additonal documentation Additional information Please see resident H/P for further details regarding the history. Patient very poor historian and not really able to pin down his symptoms or complaints but does c/o right hip pain and overall decreasing stregnth and increasing general debility over the past few weeks. Denies CP, SOB, HENRY, is eating and tolerating PO without GI complaints but states does not really want to eat. He does not have local family, has a friend that helps him and had Home health prior to admission. He continue to c/o some dysuria and numbness into the LE bilaterally Vital Signs Date Time Temp Pulse Resp B/P (MAP) Pulse Ox O2 Delivery O2 Flow Rate FiO2 02/15/18 12:05 97.7 49 18 169/74 (105) 98 02/14/18 19:26 Room Air Laboratory Tests Test 02/15/18 06:25 Blood Urea Nitrogen 18 MG/DL Creatinine 1.02 MG/DL Random Glucose 100 MG/DL Calcium Level 8.6 MG/DL Phosphorus Level 3.8 MG/DL Magnesium Level 2.3 MG/DL Sodium Level 136 MEQ/L Potassium Level 4.1 MEQ/L Chloride Level 101 MEQ/L Carbon Dioxide Level 27.4 MEQ/L Anion Gap 8 MEQ/L Estimat Glomerular Filtration Rate 69 ML/MIN Tumor Marker Alpha Fetoprotein 4.3 NG/ML Prostate Specific Antigen 1.73 NG/ML Last Impressions Lumbar Spine CT 02/14/18 0000 Signed Impressions: Service Date/Time: Wednesday, February 14, 2018 11:50 - CONCLUSION: 1. Focal severe spinal canal stenosis at L4-5. 2. Focal mild to moderate spinal canal stenosis at L3-4. 3. Mild spinal canal stenosis at L2-3 and L5-S1 4. Old appearing moderate compression fracture injury along the superior endplate of L1-S1. 5. Primary degenerative changes throughout the lumbar spine with bilateral facet arthritis at multiple levels. Jeramie Friedman MD Liver Ultrasound 02/14/18 0000 Signed Impressions: Service Date/Time: Wednesday, February 14, 2018 22:38 - CONCLUSION: 1. No acute abnormality demonstrated. 2. Chronic parenchymal changes of the right kidney. Lit Blanco MD O. CONSTITUTIONAL/GEN: normally nourished, in NAD, resting comfortably in bed EYES: conjunctiva normal, PERRLA, EOMI. ENT: Mouth and pharynx normal. NECK: thyroid midline, carotids symmetrical. LUNGS: clear A-P, respiratory effort is normal. CARDIOVASCULAR: RR without murmur or gallop. No significant edema. GI/ABD: soft without masses, without organomegaly. : no CVA tenderness NEURO: No focal deficits. Strength LE bialteral symmetrical 4/5, DTR intact bilateral, he is moving in bed without issues and moving arms and legs SKIN: color normal, no rashes noted. HEME/LYMPH: no bruising, petechia or significant adenopathy MUSC: back is normal in appearance. Extremities are normal in appearance, left hip with decrease rotation due to pain PSYCH/MENTAL STATUS: Alert and oriented x 3. a/p General debility and weakness -- unclear at this time workup pending. 1. Left Hip Pain -- check XRAY 2. Dysuria -- PSA ok, check bladder scan 3. Numbness -- likely chronic and related to spine pathology -- he is intact in the LE both neurologically and vascularly. 4. General debility -- he is not eating much reportedly at home. Will support with IVF now, PT/OT/SPEECH therapy consults pending. Patient seen and dw the resident team -- Dr. Hanson, Dr. Bennett, Dr. Geoff Rodriguez,Tatyana Mei MD February 15, 2018 13:29
--- NOTE | 2018-02-15 16:20 | RADRPT ---
EXAM DATE/TIME: 02/15/2018 13:34 [facility] COMPARISON: No previous studies available for comparison. INDICATIONS : Left hip pain, denies injury MEDICAL HISTORY : Arthritis. Hypertension. Ulcer. Nausea. Dysuria SURGICAL HISTORY : Vasectomy. ENCOUNTER: Initial ACUITY: 4 - 6 days PAIN SCORE: 6/10 LOCATION: Left Hip FINDINGS: There is advanced osteoarthritis of the left hip with marked joint space narrowing, sclerosis and sub chondral cyst formation. No acute fracture. Mild osteoarthritis right hip. CONCLUSION: 1. Advanced osteoarthritis of the left hip. Dejuan Harper MD on February 15, 2018 at 16:17 Board Certified Radiologist. This report was verified electronically.
[2018-02-15] MEDS: ENOXAPARIN SODIUM 40 MG/0.4 ML SYRINGE SQ SCH (17:11)
[2018-02-15] MEDS: MAGNESIUM HYDROXIDE SUSP 30 ML CUP PO PRN (21:40)
[2018-02-15] MEDS: SENNOSIDES 8.6 MG TAB PO PRN (21:40)
[2018-02-16] VITALS (7 sets, daily range): BP systolic 161–190; BP diastolic 76–95; PULSE 55–67; RESP 17–18; TEMP 97.4–98.1; O2SAT 98–99
[2018-02-16] MEDS: KETOROLAC TROMETHAMINE 60 MG/2 ML (IM) VIAL IM PRN ×4 (00:29→21:08)
[2018-02-16 06:17] LABS: AUTOMATED NEUTROPHIL # 3.1 TH/MM3 (1.8-7.7); BASOPHIL % 0.8 % (0.0-2.0); EOSINOPHIL # 0.2 TH/MM3 (0-0.4); EOSINOPHIL % 3.6 % (0.0-4.0); HEMATOCRIT 38.5 % (39.0-51.0); HEMOGLOBIN 13.4 GM/DL (13.0-17.0); LYMPH % 26.5 % (9.0-44.0); LYMPHOCYTE # 1.4 TH/MM3 (1.0-4.8); MEAN CELL VOLUME 89.8 FL (80.0-100.0); MEAN CORPUSCULAR HEMOGLOBIN 31.2 PG (27.0-34.0); MEAN CORPUSCULAR HGB CONC 34.8 % (32.0-36.0); MONO % 10.4 % (0.0-8.0); MONOCYTE # 0.5 TH/MM3 (0-0.9); NEUT % 58.7 % (16.0-70.0); PLATELET COUNT 305 TH/MM3 (150-450); RED BLOOD COUNT 4.29 MIL/MM3 (4.50-5.90); RED CELL DISTRIBUTION WIDTH 14.3 % (11.6-17.2); WHITE BLOOD COUNT 5.2 TH/MM3 (4.0-11.0)
[2018-02-16] MEDS: SODIUM CHLOR 0.9% 1000 ML INJ 1,000 ML IV SCH ×2 (06:23→12:15)
[2018-02-16 06:40] LABS: CALCIUM 7.9 MG/DL (8.5-10.1); CREATININE 0.97 MG/DL (0.60-1.30)
[2018-02-16] MEDS: DOCUSATE SODIUM 50 MG/SENNA 8.6 MG TAB PO SCH ×2 (08:12→21:07)
[2018-02-16] MEDS: SODIUM CHLORIDE 0.9% FLUSH 10 ML FLUSH IV FLUSH SCH ×2 (08:12→21:07)
--- NOTE | 2018-02-16 11:38 | HHI.FPPN ---
Subjective Remarks No acute events overnight. Feels well this morning except hip pain. No CP/SOB. Tolerating diet without issue. (Tee Hanson MD R2) Objective Vitals Vital Signs Date Time Temp Pulse Resp B/P (MAP) Pulse Ox O2 Delivery O2 Flow Rate FiO2 02/16/18 09:20 97.4 60 18 161/83 (109) 98 02/16/18 07:24 18 02/16/18 05:22 97.7 57 18 174/76 (108) 98 02/15/18 22:55 97.5 60 18 178/83 (114) 99 02/15/18 19:48 97.3 62 18 184/86 (118) 97 02/15/18 16:30 98.0 61 17 166/85 (112) 99 02/15/18 12:05 97.7 49 18 169/74 (105) 98 I/O 02/15/18 02/15/18 02/15/18 02/16/18 02/16/18 02/16/18 07:00 15:00 23:00 07:00 15:00 23:00 Intake Total 420 ml 600 ml 480 ml Output Total 500 ml 550 ml 250 ml Balance -80 ml 50 ml 230 ml Intake Oral 420 ml 600 ml 480 ml Output Urine Total 500 ml 550 ml 250 ml # Bowel Movements 0 1 (Tee Hanson MD R2) Result Diagram: 02/16/18 0543 02/16/18 0543 Imaging Last Impressions Hip and Pelvis X-Ray 02/15/18 0000 Signed Impressions: Service Date/Time: February 13:34 - CONCLUSION: 1. Advanced osteoarthritis of the left hip. Dejuan Harper MD Lumbar Spine CT 02/14/18 0000 Signed Impressions: Service Date/Time: Wednesday, February 14, 2018 11:50 - CONCLUSION: 1. Focal severe spinal canal stenosis at L4-5. 2. Focal mild to moderate spinal canal stenosis at L3-4. 3. Mild spinal canal stenosis at L2-3 and L5-S1 4. Old appearing moderate compression fracture injury along the superior endplate of L1-S1. 5. Primary degenerative changes throughout the lumbar spine with bilateral facet arthritis at multiple levels. Jeramie Friedman MD Liver Ultrasound 02/14/18 0000 Signed Impressions: Service Date/Time: Wednesday, February 14, 2018 22:38 - CONCLUSION: 1. No acute abnormality demonstrated. 2. Chronic parenchymal changes of the right kidney. Lti Blanco MD Objective Remarks GEN: Thin elderly white man lying in bed in NAD Skin: Cool and dry CV: NRRR, normal S1/S2, no MRG LUNGS: CTAB, no crackles/wheezes MSK: BLE without cyanosis or edema NEURO: Awake, alert. Normal speech. Grossly non-focal. Medications and IVs Last Impressions Hip and Pelvis X-Ray 02/15/18 0000 Signed Impressions: Service Date/Time: February 13:34 - CONCLUSION: 1. Advanced osteoarthritis of the left hip. Dejuan Harper MD Lumbar Spine CT 02/14/18 0000 Signed Impressions: Service Date/Time: Wednesday, February 14, 2018 11:50 - CONCLUSION: 1. Focal severe spinal canal stenosis at L4-5. 2. Focal mild to moderate spinal canal stenosis at L3-4. 3. Mild spinal canal stenosis at L2-3 and L5-S1 4. Old appearing moderate compression fracture injury along the superior endplate of L1-S1. 5. Primary degenerative changes throughout the lumbar spine with bilateral facet arthritis at multiple levels. Jeramie Friedman MD Liver Ultrasound 02/14/18 0000 Signed Impressions: Service Date/Time: Wednesday, February 14, 2018 22:38 - CONCLUSION: 1. No acute abnormality demonstrated. 2. Chronic parenchymal changes of the right kidney. Lit Blanco MD (Tee Hanson MD R2) A/P Assessment and Plan 83 year old male with history of BPH and HTN both currently unmedicated and arthritis presenting with: (Tee Hanson MD R2) Attending Attestation Patient seen and examined. Case reviewed and discussed with the resident team. Agree with plan of care as discussed with me and documented in the resident note. (Tatyana Rodriguez MD) Problem List: (1) Weakness ICD Codes: R53.1 - Weakness Status: Chronic Plan: Acute on chronic. Associated with weight loss. Likely nutritional. History of alcoholism raises question of possible cirrhosis or liver cancer, though weight loss is only symptom suggesting cancer. History of BPH with hesitancy, does not take medication. CT lumbar spine with significant spinal stenosis No ascites on exam; if cirrhosis present it is well compensated Neuro exam benign AFP normal Liver U/S normal PSA 1.73 (normal) PT/OT recommending rehab - Discharge plan of SNF vs CIR - ST for swallow eval (patient only eats pureed diet, dysphagia?) (2) Short-term memory loss ICD Codes: R41.3 - Other amnesia Plan: Suspected to be chronic and age-related. Neurological exam benign. - ST for cognitive eval (3) Hyponatremia ICD Codes: E87.1 - Hypo-osmolality and hyponatremia Status: Resolved Plan: Most likely chronic due to poor PO intake - Diet regular ad woody (pureed per patient preference) - Supplement with ensure - Stop IVF and check BMP tomorrow; may need salt tabs if diet not sustaining sodium (4) Neuropathy ICD Codes: G62.9 - Polyneuropathy, unspecified Status: Chronic Plan: Likely secondary to spinal stenosis. No evidence of cord compromise. - See plan above (5) Spinal stenosis ICD Codes: M48.00 - Spinal stenosis, site unspecified Status: Chronic Plan: CT with spinal stenosis, severe, lumbar No evidence of cord compromise (6) FEN/PPX Plan: Fluids: PO only Elecs: Monitor and replete as needed Nutrition: See above DVT: Lovenox 40 mg SQ daily Pain: tylenol prn, low-dose toradol for breakthrough CODE STATUS: DNR Dispo: To SNF vs Rehab on 02/17 (Tee Hanson MD R2) Problem Qualifiers (1) Spinal stenosis: Qualified Codes: M48.061 - Spinal stenosis, lumbar region without neurogenic claudication Tee Hanson MD R2 February 16, 2018 11:38 Tatyana Rodriguez MD February 16, 2018 13:39
[2018-02-16] MEDS ORDERED: hydrALAZINE HCL 10 MG TAB PO PRN (13:30)
[2018-02-16] MEDS ORDERED: PILL SPLITTER OTHER PRN (13:45)
[2018-02-16] MEDS ORDERED: ACET300T49 PO (14:21)
--- NOTE | 2018-02-16 14:22 | HHI.DCPOC ---
Discharge Care Plan Diagnosis: (1) Spinal stenosis (2) Weakness (3) Neuropathy Goals to Promote Your Health * To prevent worsening of your condition and complications * To maintain your health at the optimal level Directions to Meet Your Goals Take your medications as prescribed Follow your dietary instruction Follow activity as directed Keep your appointments as scheduled Take your immunizations and boosters as scheduled If your symptoms worsen call your PCP, if no PCP go to Urgent Care Center or Emergency Room Smoking is Dangerous to Your Health. Avoid second hand smoke Call the 24-hour hour crisis hotline for domestic abuse at Tee Hanson MD R2 February 16, 2018 2:22 pm
[2018-02-16] MEDS: ENOXAPARIN SODIUM 40 MG/0.4 ML SYRINGE SQ SCH (17:04)
[2018-02-16] MEDS ORDERED: IBUPROFEN 800 MG TAB PO ONE (21:15)
[2018-02-17] MEDS: SENNOSIDES 8.6 MG TAB PO PRN (08:19)
[2018-02-17] MEDS: DOCUSATE SODIUM 50 MG/SENNA 8.6 MG TAB PO SCH (08:19)
[2018-02-17] MEDS: MAGNESIUM HYDROXIDE SUSP 30 ML CUP PO PRN (08:19)
[2018-02-17] MEDS: KETOROLAC TROMETHAMINE 30 MG/ML (IVP) VIAL IV PUSH PRN ×2 (08:20→15:08)
[2018-02-17] MEDS: SODIUM CHLORIDE 0.9% FLUSH 10 ML FLUSH IV FLUSH SCH (08:23)
--- NOTE | 2018-02-17 09:05 | HHI.FPPN ---
Subjective Remarks Patient seen and examined at bedside. Patient reports he had increased in Left hip pain overnight but it is not stable after receiving pain medication. Pt also c/o numbness/tingling in his feet BL. no other complaints. (Adelina Bennett MD, R1) Objective Vitals Vital Signs Date Time Temp Pulse Resp B/P (MAP) Pulse Ox O2 Delivery O2 Flow Rate FiO2 02/16/18 23:24 Room Air 02/16/18 22:56 97.7 55 17 171/94 (119) 98 02/16/18 21:52 18 02/16/18 20:00 97.7 55 17 174/95 (121) 99 02/16/18 16:00 98.1 67 18 174/90 (118) 98 02/16/18 12:58 97.8 60 18 169/79 (109) 98 02/16/18 12:00 190/84 (119) 02/16/18 09:20 97.4 60 18 161/83 (109) 98 I/O 02/16/18 02/16/18 02/16/18 02/17/18 02/17/18 02/17/18 07:00 15:00 23:00 07:00 15:00 23:00 Intake Total 480 ml 537 ml Output Total 250 ml 200 ml Balance 230 ml 337 ml Intake Oral 480 ml 537 ml Output Urine Total 250 ml 200 ml # Bowel Movements 1 0 1 (Adelina Bennett MD, R1) Result Diagram: 02/16/18 0543 02/17/18 0643 Objective Remarks GEN: Thin elderly white man lying in bed in NAD Skin: Cool and dry CV: NRRR, normal S1/S2, no MRG LUNGS: CTAB, no crackles/wheezes Abd: soft, non tender non distended, positive BS. MSK: BLE without cyanosis or edema NEURO: Awake, alert. Normal speech. Grossly non-focal. (Adelina Bennett MD, R1) A/P Assessment and Plan 83 year old male with history of BPH and HTN both currently unmedicated and arthritis presenting with: (Adelina Bennett MD, R1) Attending Attestation Patient seen and examined. Case reviewed and discussed with the resident team. Agree with plan of care as discussed with me and documented in the resident note. (Tatyana Rodriguez MD) Problem List: (1) Weakness ICD Codes: R53.1 - Weakness Status: Chronic Plan: Acute on chronic. Associated with weight loss. Likely nutritional. History of alcoholism raises question of possible cirrhosis or liver cancer, though weight loss is only symptom suggesting cancer. History of BPH with hesitancy, does not take medication. CT lumbar spine with significant spinal stenosis No ascites on exam; if cirrhosis present it is well compensated Neuro exam benign AFP normal Liver U/S normal PSA 1.73 (normal) PT/OT recommending rehab - Discharge plan of SNF vs CIR - ST for swallow eval: puree with thin liquids (patient requested pureed diet, due to reduced dentition) (2) Short-term memory loss ICD Codes: R41.3 - Other amnesia Plan: Suspected to be chronic and age-related. Neurological exam benign. 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 No evidence of cord compromise. - See plan above (5) Spinal stenosis ICD Codes: M48.00 - Spinal stenosis, site unspecified Status: Chronic Plan: CT with spinal stenosis, severe, lumbar No evidence of cord compromise (6) FEN/PPX Plan: Fluids: PO only Elecs: Monitor and replete as needed Nutrition: See above DVT: Lovenox 40 mg SQ daily Pain: tylenol prn, low-dose toradol for breakthrough CODE STATUS: DNR Dispo: To SNF vs Rehab on 02/17 (Adelina Bennett MD, R1) Problem Qualifiers (1) Spinal stenosis: Qualified Codes: M48.061 - Spinal stenosis, lumbar region without neurogenic claudication Adelina Bennett MD, R1 February 17, 2018 09:05 Tatyana Rodriguez MD February 19, 2018 12:07
[2018-02-17 11:20] VITALS: BP 168/82; PULSE 68; RESP 16; TEMP 97.9; O2SAT 97
[2018-02-17] MEDS ORDERED: SODI1TAB PO (12:01)
[2018-02-17] MEDS ORDERED: SODIUM CHLORIDE 1 GRAM TAB PO SCH (12:15)
--- NOTE | 2018-02-17 12:16 | HHI.DS ---
Discharge Summary Admission Date February 14, 2018 at 13:46 Discharge Date: February 17, 2018 Admitting Diagnosis severe spinal stenosis, inability to ambulate, failure to thrive (1) Weakness Plan: Acute on chronic. Associated with weight loss. Likely nutritional. History of alcoholism raises question of possible cirrhosis or liver cancer, though weight loss is only symptom suggesting cancer. History of BPH with hesitancy, does not take medication. CT lumbar spine with significant spinal stenosis No ascites on exam; if cirrhosis present it is well compensated Neuro exam benign AFP normal Liver U/S normal PSA 1.73 (normal) PT/OT recommending rehab - Discharge plan of SNF vs CIR - ST for swallow eval: puree with thin liquids (patient requested pureed diet, due to reduced dentition) ICD Codes: R53.1 - Weakness Status: Chronic (2) Short-term memory loss Plan: Suspected to be chronic and age-related. Neurological exam benign. - ST for cognitive eval ICD Codes: R41.3 - Other amnesia (3) Hyponatremia Plan: Most likely chronic due to poor PO intake - Diet regular ad woody (pureed per patient preference) - Supplement with ensure - salt tabs daily ICD Codes: E87.1 - Hypo-osmolality and hyponatremia Status: Resolved (4) Neuropathy Plan: Likely secondary to spinal stenosis. No evidence of cord compromise. - See plan above ICD Codes: G62.9 - Polyneuropathy, unspecified Status: Chronic (5) Spinal stenosis Plan: CT with spinal stenosis, severe, lumbar No evidence of cord compromise ICD Codes: M48.00 - Spinal stenosis, site unspecified Status: Chronic Brief History 83 yo male with remote history of alcoholism sober for 40 years and PUD in 2011 presenting with 1 month of poor appetite, short term memory loss, and exacerbation of chronic low back pain from known arthritis. No incontinence or saddle anesthesia. He does note numbness/paresthesia in his feet for the last month which has caused him to avoid driving because "he can't feel the pedals." He feels his appetite is decreased and he feels somewhat queasy when eating larger meals but denies abdominal pain. No blood in stool. Over the last year he also notes forgetfulness and absentmindedness, worse in the last month. He feels as though he often forgets what he is doing or why. No focal weakness, slurred speech, or trouble swallowing, though he prefers to eat a pureed diet and feels globally weak. The main reason he came to the hospital is that today a gearcase assembler was seeing him as part of home health care he had and recommended he be placed due to the physical and cognitive decline he has reported. He could not drive so came to hospital by ambulance. CBC/BMP: 02/16/18 0543 02/17/18 0643 Significant Findings Laboratory Tests Test 02/15/18 06:25 02/16/18 05:43 02/17/18 06:43 Estimat Glomerular Filtration Rate 69 ML/MIN (>89) 74 ML/MIN (>89) Red Blood Count 4.29 MIL/MM3 (4.50-5.90) Hematocrit 38.5 % (39.0-51.0) Monocytes (%) (Auto) 10.4 % (0.0-8.0) Blood Urea Nitrogen 19 MG/DL (7-18) Calcium Level 7.9 MG/DL (8.5-10.1) Sodium Level 135 MEQ/L (136-145) PE at Discharge GEN: Thin elderly white man lying in bed in NAD Skin: Cool and dry CV: NRRR, normal S1/S2, no MRG LUNGS: CTAB, no crackles/wheezes Abd: soft, non tender non distended, positive BS. MSK: BLE without cyanosis or edema NEURO: Awake, alert. Normal speech. Grossly non-focal. Pt Condition on Discharge: Stable Discharge Disposition: Discharge to SNF Discharge Instructions DIET: Follow Instructions for: Pureed Diet Speech Therapy-Diet Recommends: Pureed, Other Activities you can perform: Weight Bearing as Oscar Follow up Referrals: PCP Follow-up - 1 Month New Medications: Acetaminophen-Codeine (Acetaminophen-Codeine) 300-15 mg Tab 1 TAB PO Q6H PRN for PAIN, #90 TAB 0 Refills Sodium Chloride (Sodium Chloride) 1 Gram Tab 1 GM PO DAILY for Electrolyte Replacement, #30 TAB 0 Refills Continued Medications: Aspirin (Aspirin) 81 Mg Chew 81 MG PO DAILY, TAB 0 Refills Pantoprazole (Protonix) 20 Mg Tab 20 MG PO DAILY for Reflux, #30 TAB 0 Refills Polyethylene Glycol 3350 Powder (Miralax Powder) 17 Gm Powd 17 GM PO DAILY for Constipation, #1 CAN 0 Refills Mix and dissolve one measuring cap-ful (17 grams) in water or juice. Discontinued Medications: Acetaminophen-Codeine (Tylenol-Codeine #4) 300-60 mg Tab 1 TAB PO Q6HR PRN for PAIN, TAB 0 Refills Adelina Bennett MD, R1 February 17, 2018 12:16
[2018-02-17] MEDS: ENOXAPARIN SODIUM 40 MG/0.4 ML SYRINGE SQ SCH (15:07)
== END 2018-02-17 15:38 | DRG 552 ==
LOC: NEPE 11:06 → NEDA 13:46 → N06A 20:09
PROVIDERS: ADMIT Family Medicine; ATTEND Family Medicine
DX: M48.061 Spinal stenosis, lumbar region without neurogenic claudication (principal); E87.1 Hypo-osmolality and hyponatremia; G62.9 Polyneuropathy, unspecified; I10 Essential (primary) hypertension; R41.3 Other amnesia; N40.1 Benign prostatic hyperplasia with lower urinary tract symptoms; R39.11 Hesitancy of micturition; F10.21 Alcohol dependence, in remission; R63.4 Abnormal weight loss; R30.0 Dysuria; M16.12 Unilateral primary osteoarthritis, left hip; Z87.891 Personal history of nicotine dependence
CPT/HCPCS: 72131; 73502; 76705; 80048; 80053; 81001; 82105; 83735; 84100; 84153; 84295; 84443; 85025; 93005; J1650; J1885; J7030